=== PATIENT | male | born 1950 | race Caucasian/White ===

== ENCOUNTER 2023-11-21 13:00 | Outpatient (RCR) | payer OTHER, SELFPAY | END 2023-11-21 23:59 | disposition home or self-care (01) | LOC: RPT 13:00 | PROVIDERS: ATTENDING PHYSICIAN Student in an Organized Health Care Education/Training Program | DX: M54.51 Vertebrogenic low back pain (principal); Z73.6 Limitation of activities due to disability | CPT/HCPCS: 97110; 97162 ==

== ENCOUNTER 2023-11-30 13:32 | Outpatient (RCR) | payer OTHER, SELFPAY | END 2023-12-08 13:04 | disposition home or self-care (01) | LOC: RPT 13:32 | PROVIDERS: ATTENDING PHYSICIAN Student in an Organized Health Care Education/Training Program | DX: M54.51 Vertebrogenic low back pain (principal); Z73.6 Limitation of activities due to disability | CPT/HCPCS: 97110 ==

== ENCOUNTER → 2024-02-22 10:04 | Outpatient (REF) | payer OTHER, SELFPAY | LOC: DHCBS MAIN 10:04 | PROVIDERS: ATTENDING PHYSICIAN Internal Medicine Cardiovascular Disease; FAMILY PHYSICIAN Student in an Organized Health Care Education/Training Program | DX: Z98.890 Other specified postprocedural states (principal) | CPT/HCPCS: 93306 ==

== ENCOUNTER → 2024-05-02 09:01 | Outpatient (REF) | payer OTHER, SELFPAY | LOC: RAD 09:01 | PROVIDERS: ATTENDING PHYSICIAN Surgery Vascular Surgery; FAMILY PHYSICIAN Student in an Organized Health Care Education/Training Program | DX: I73.9 Peripheral vascular disease, unspecified (principal); I71.43 Infrarenal abdominal aortic aneurysm, without rupture; I65.29 Occlusion and stenosis of unspecified carotid artery | CPT/HCPCS: 93880; 93922; 93925; 93978 ==

== ENCOUNTER 2024-10-31 10:14 | Day surgery (SDC) | payer OTHER, SELFPAY ==
--- NOTE | 2024-10-31 11:17 | ITS.CL.CARDI ---
Diesel Pile Hammer Operator - Cardioversion
Cardioversion
Procedure Report:
Procedure: Direct current electrical cardioversion
Pre-operative diagnosis: Persistent atrial fibrillation
Post-operative diagnosis: Persistent atrial fibrillation status post DC cardioversion to sinus rhythm
Anesthesia: MAC
Attending Physician: Harvinder Odell MD
Procedure Description: The patient was brought to the electrophysiology laboratory in the fasting state. Adherence to anticoagulation regimen was confirmed. Informed consent was obtained from the patient prior to the start of the procedure.
Electrodes were placed on the patient and connected to an external defibrillator. Monitoring of blood pressure, ECG tracings, and pulse oximetry was initiated. The pads were applied to the patient in the anterior and posterior positions. The patient
was sedated by the anesthesiologist. A 200 joule biphasic synchronized shock was delivered to the patient under MAC anesthesia. Sinus rhythm was successfully restored. The patient recovered uneventfully from MAC anesthesia. There were no immediate
post-procedure complications. The patient left the lab in good condition. The attending physician was present throughout the entire procedure.
Impression: Successful direct current cardioversion with latter day of sinus rhythm after one 200 joule biphasic synchronized shock.
== END 2024-10-31 11:45 | disposition home or self-care (01) ==
LOC: CATH 10:14
PROVIDERS: ATTENDING PHYSICIAN Internal Medicine Cardiovascular Disease; FAMILY PHYSICIAN Student in an Organized Health Care Education/Training Program; OTHER PHYSICIAN Internal Medicine Cardiovascular Disease
DX: I48.19 Other persistent atrial fibrillation (principal); I48.92 Unspecified atrial flutter; I50.9 Heart failure, unspecified; I34.0 Nonrheumatic mitral (valve) insufficiency; I25.10 Atherosclerotic heart disease of native coronary artery without angina pectoris; E78.00 Pure hypercholesterolemia, unspecified; Z87.891 Personal history of nicotine dependence; Z79.01 Long term (current) use of anticoagulants
CPT/HCPCS: 92960; 93005

== ENCOUNTER → 2024-11-18 14:51 | Outpatient (REF) | payer OTHER, SELFPAY | LOC: RCS 14:51 | PROVIDERS: ATTENDING PHYSICIAN Internal Medicine Cardiovascular Disease; FAMILY PHYSICIAN Student in an Organized Health Care Education/Training Program | DX: I42.9 Cardiomyopathy, unspecified (principal) | CPT/HCPCS: 93306 ==

== ENCOUNTER → 2024-12-02 09:00 | Outpatient (REF) | payer OTHER, SELFPAY | LOC: RAD 09:00 | PROVIDERS: ATTENDING PHYSICIAN Surgery Vascular Surgery; FAMILY PHYSICIAN Student in an Organized Health Care Education/Training Program | DX: I73.9 Peripheral vascular disease, unspecified (principal) | CPT/HCPCS: 93922; 93925; 93978 ==

== ENCOUNTER 2024-12-24 08:44 | Day surgery (SDC) | payer OTHER, SELFPAY ==
--- NOTE | 2024-12-18 14:07 | HPS.HSE ---
Family Physician
-
Family Physician: NOT KNOW UNKNOWN - PT DOES
Chief Complaint
-
Paroxysmal atrial fibrillation. Atrial flutter.
History of Present Illness
The patient is a 74-year-old male presenting today for paroxysmal atrial fibrillation and atrial flutter. The patient reports dyspnea, most notably with exertion, and fatigue secondary to these diagnoses. He previously underwent two
cardioversions, with the last occurring in October 2024, for his atrial arrhythmias. He is on current pharmacological therapy with Metoprolol Succinate. He reports he has been compliant with Eliquis for oral anticoagulation. He notes that his
current symptoms greatly interfere with his activities of daily living and overall impact his quality of life. He is interested in pursuing pulmonary vein isolation and atrial flutter ablation for further arrhythmia management. Prior to these
procedures, he will be required to undergo a transesophageal echocardiogram to officially rule out a left atrial appendage thrombus. He denies any current complaints today such as chest pain, shortness of breath at rest, nausea, vomiting, diarrhea,
lightheadedness, dizziness, cough, sore throat, or fever.
Medical History
Past Medical History
Past Medical History: Reports Other
Additional Past Medical History:
1. Paroxysmal atrial fibrillation and atrial flutter, status post IRENA-guided cardioversion x2; pharmacological therapy with Metoprolol Succinate, oral anticoagulation with Eliquis.
2. Hypercholesterolemia.
3. Coronary artery disease/NSTEMI, 2019, status post CABG x3.
4. Severe mitral regurgitation, status post mitral valve ring repair with CABG 2019.
5. Bilateral carotid artery stenosis with chronic right carotid occlusion.
6. Peripheral vascular disease with right common iliac artery aneurysm, status post right femoral endarterectomy and angioplasty, repair of right common iliac artery aneurysm, and left superficial femoral artery angioplasty and stenting x2.
7. 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
8. Congestive heart failure, reduced ejection fraction.
9. Ischemic cardiomyopathy.
10. Obstructive sleep apnea, compliant with BiPAP.
11. Non-insulin dependent diabetes per records.
12. Diverticulosis.
13. Documented TIA.
14. Chronic right-sided lacunar infarct on brain MRI 06/2021.
15. BPH, status post TURP 06/2022.
16. Remote fractured sternum and displaced left clavicle, treated conservatively.
17. Shingles.
18. Hearing impairment bilaterally.
19. Remote tobacco abuse.
Past Surgical History: Reports Other
Additional Past Surgical History:
1. IRENA/cardioversion x2.
2. CABG x3 and mitral valve ring repair.
3. Right femoral endarterectomy and angioplasty, repair of right common iliac artery aneurysm, and left superficial femoral artery angioplasty and stenting x2.
4. TURP.
5. Mohs.
6. Bilateral cataract extraction.
7. Colonoscopy x2.
Social History
Tobacco: Former Smoker (He is a former one pack per day cigarette smoker who quit tobacco products altogether 'awhile back.')
Alcohol: None
Living: Alone (The patient lives in a small [place] in [place].)
Family History
Family History: Not pertinent
Allergies / Home Medications
Allergy/Medication List:
Home medications:
1. Aspirin 81 mg p.o. daily.
2. Atorvastatin 80 mg p.o. every evening.
3. Eliquis 5 mg p.o. twice a day.
4. Zetia 10 mg p.o. daily.
5. Lisinopril 2.5 mg p.o. daily.
6. Metoprolol Succinate 12.5 mg p.o. twice a day.
Allergies: Seasonal. No known drug allergies.
Review of Systems
-
A 12 point ROS was completed and negative except as noted: Yes
Physical Exam
Vital Signs
Blood pressure 113/80, heart rate 69, respirations 18, pulse ox 99%.
Height 5 feet 7 inches, weight 80.8 kg, BMI 27.9.
Physical Exam
General: Well Developed, Well Nourished and No Apparent Distress
HEENT: NormoCephalic, Moist mucous membranes, Atraumatic and PERRLA
Respiratory: Clear
Cardiac: Irregular Rhythm
GI: Soft, Non Tender and Non Distended
Musculoskeletal: No Edema and Normal Gait & Station
Skin: Warm and Dry
Neuro: AO x 3 and Nonfocal/grossly intact
Laboratory Results
-
DIAGNOSTIC STUDIES as of 12/12/2024: White blood cell count 5.4, hemoglobin 15.4, platelet count 204,000, PT 13.4, INR 0.97. Sodium 139, potassium 4.8, BUN 21, creatinine 0.9, glucose 119, calcium 9.4, magnesium 2.1, AST 26, ALT 32, albumin 4.3.
Blood type O positive.
EKG 12/12/2024: Atrial fibrillation. Nonspecific intraventricular conduction delay. Nonspecific T-wave abnormality.
Chest CT 12/12/2024: Normal, conventional pulmonary venous anatomy. Incomplete contrast filling of the left atrial appendage, less likely thrombus.
Echocardiogram 11/18/2024: Left ventricle is mildly dilated. Left ventricular ejection fraction is 40% by volumetric assessment. Basal inferior and inferolateral akinesis. Abnormal (paradoxical) septal motion consistent with postoperative status.
Mild concentric left ventricular hypertrophy. Mildly enlarged right ventricular size. Mild reduced right ventricular systolic function. Index LA volume is severely abnormal. Status post mitral valve ring repair with peak gradient of 6 mmHg/mean
gradient 2 mmHg. No mitral regurgitation is seen. Trace tricuspid regurgitation. Estimated pulmonary artery pressure of 20-25 mmHg, assuming a right atrial pressure of 3 mmHg. Compared to the prior echo of 02/22/2024, there is little change.
Impression/Plan
-
IMPRESSION/PLAN:
1. Paroxysmal atrial fibrillation and atrial flutter: Prior to undergoing pulmonary vein isolation and atrial flutter ablation, the patient will undergo a transesophageal echocardiogram with Dr. Jose Pineda on 12/24/2024 to officially rule out
a left atrial appendage thrombus. The benefits and risks of the procedure have been explained to the patient. The patient understands these risks and wishes to proceed.
[2024-12-24 09:40] LABS: Glucose - Point of Care 105 mg/dl (70-99)
== END 2024-12-24 10:15 | disposition home or self-care (01) ==
LOC: CATH 08:44
PROVIDERS: ATTENDING PHYSICIAN Internal Medicine Cardiovascular Disease; FAMILY PHYSICIAN Student in an Organized Health Care Education/Training Program
DX: I48.0 Paroxysmal atrial fibrillation (principal); I08.3 Combined rheumatic disorders of mitral, aortic and tricuspid valves; I25.10 Atherosclerotic heart disease of native coronary artery without angina pectoris; I48.92 Unspecified atrial flutter; Z79.899 Other long term (current) drug therapy; Z79.01 Long term (current) use of anticoagulants; E78.00 Pure hypercholesterolemia, unspecified; Z95.1 Presence of aortocoronary bypass graft; I25.2 Old myocardial infarction; I65.23 Occlusion and stenosis of bilateral carotid arteries; E11.51 Type 2 diabetes mellitus with diabetic peripheral angiopathy without gangrene; I11.0 Hypertensive heart disease with heart failure; I50.22 Chronic systolic (congestive) heart failure; I25.5 Ischemic cardiomyopathy; G47.33 Obstructive sleep apnea (adult) (pediatric); Z79.84 Long term (current) use of oral hypoglycemic drugs; K57.90 Diverticulosis of intestine, part unspecified, without perforation or abscess without bleeding; Z86.73 Personal history of transient ischemic attack (TIA), and cerebral infarction without residual deficits; Z90.79 Acquired absence of other genital organ(s); N40.0 Benign prostatic hyperplasia without lower urinary tract symptoms; H91.93 Unspecified hearing loss, bilateral; Z87.891 Personal history of nicotine dependence; Z79.82 Long term (current) use of aspirin; I08.8 Other rheumatic multiple valve diseases
CPT/HCPCS: 93312; 93320; 93325; 75625; 82962; Q9967

== ENCOUNTER 2024-12-26 10:25 | Day surgery (SDC) | payer OTHER, SELFPAY ==
[2024-12-12 10:16] VITALS: BMI 27.9
[2024-12-12 10:39] LABS: % Basophils 0.4 % (0-2); % Eosinophils 2.4 % (0-6); % Immature Granulocytes 0.6 % (0-0.5); % Lymphocytes 27.4 % (20.5-51.1); % Monocytes 9.9 % (1.7-9.3); % Neutrophils 59.3 % (42.2-75.2); Absolute Eosinophils 0.1 10^3/uL (0-0.7); Absolute Lymphocytes 1.5 10^3/uL (1.2-3.4); Absolute Monocytes 0.5 10^3/uL (0.1-0.6); Absolute Neutrophils 3.2 10^3/uL (1.4-6.5); Hematocrit 47.7 % (39.0-52.0); Hemoglobin 15.4 g/dL (13.0-18.0); Mean Corp Hgb Conc. 32.3 g/dL (33.0-37.0); Mean Corpuscular Hgb 29.2 pg (27.0-31.0); Mean Corpuscular Volume 90.3 fL (80.0-94.0); Mean Platelet Volume 9.4 fL (7.4-10.4); Nucleated Red Blood Cells % 0 % (-); Platelet Count 204 10^3/uL (130-400); Red Blood Cell Count 5.28 10^6/uL (4.70-6.10); Red Cell Dist. Width 13.7 % (11.5-14.5); White Blood Cell Count 5.4 10^3/uL (4.8-10.8)
[2024-12-12 10:48] LABS: INR 0.97; PT 13.4 Sec (11.4-14.6)
[2024-12-12 10:50] LABS: ALT (SGPT) 32 U/L (0-50); AST (SGOT) 26 U/L (17-59); Albumin 4.3 g/dl (3.5-5.0); Alkaline Phosphatase 93 U/L (38-126); Blood Urea Nitrogen 21 mg/dl (9-20); Calcium 9.4 mg/dl (8.4-10.2); Carbon Dioxide 28 mmol/L (22-30); Chloride 104 mmol/L (98-107); Estimated Creatinine Clearance 68 ml/min; Glucose 119 mg/dl (70-99); Magnesium 2.1 mg/dl (1.6-2.3); Potassium 4.8 mmol/L (3.5-5.1); Sodium 139 mmol/L (135-145); Total Bilirubin 0.8 mg/dl (0.2-1.3); Total Protein 6.7 g/dl (6.3-8.2); eGFR > 60.00
[2024-12-26] VITALS (17 sets, daily range): BP systolic 112–157; BP diastolic 68–131; BMI 27.9
[2024-12-26 11:07] LABS: Glucose - Point of Care 105 mg/dl (70-99)
--- NOTE | 2024-12-26 12:40 | W.PN.UPDATE ---
Update Note
Progress Note Update
Discussed his prior history with patient and . They mentioned that during cardiac surgery he ultimately required a special drug to achieve adequate heparinization. I reviewed Dr. Ballesteros's operative note from 2019 which remarks of a
prolonged period of time to achieve necessary ACT to go on cardiac bypass. The operative note remarks of multiple heparin boluses without achieving successful ACT and ultimately thrombate was given and he was able to achieve an acceptable ACT and
proceeded to coronary artery bypass and mitral valve surgery without incident.
I discussed his case with pharmacy and ordered Thrombate to be infused IV over 15 to 20 minutes then we will proceed with femoral venous access and procedure with adequate heparinization. We will follow ACT's closely.
[2024-12-26 12:58] LABS: ACT-LR - POC 144 Seconds (116-155)
[2024-12-26 13:54] LABS: ACT-LR - POC 369 Seconds (116-155)
[2024-12-26 14:23] LABS: ACT-LR - POC > 397 Seconds (116-155)
[2024-12-26 14:26] LABS: ACT-LR - POC 334 Seconds (116-155)
[2024-12-26 14:39] LABS: ACT-LR - POC 308 Seconds (116-155)
[2024-12-26 14:53] LABS: ACT-LR - POC 361 Seconds (116-155)
[2024-12-26 15:49] LABS: ACT-LR - POC > 397 Seconds (116-155)
--- NOTE | 2024-12-26 15:58 | ITS.CL.ABL ---
Electrical Project Engineer - Ablation
Ablation
Procedure Report:
ELECTROPHYSIOLOGY ABLATION STUDY
DATE:: December 26, 2024 REFERRING: Dr. Lev Pineda
INDICATION: Persistent supraventricular tachycardia in the form of atrial fibrillation. As above
HISTORY: See H and P. Prior mitral valve repair and three-vessel coronary artery bypass. Interestingly the patient's spouse reported that the cardiac surgeon required a 'special medicine 'to perform bypass. Review of Dr. Ballesteros's prior note
from 2019 demonstrated that the patient required thrombate in addition to significant doses of heparin to achieve ACT's required to perform cardiac bypass.
ANTIARRHYTHMIC DRUG: As above
PRE-PROCEDURE IRENA: No atrial thrombus
PRESENTING RHYTHM: Atrial fibrillation
'TIME-OUT': called and confirmed.
SEDATION/ANESTHESIA: provided via the anesthesia department using general anesthesia (LMA).
INTRAVENOUS/ARTERIAL ACCESS:
Right femoral venous - 8Fr
Left femoral venous - 8 Fr, 6 Fr
[id number] stitch bilaterally.
Ultrasound guidance for bilateral femoral vein access was utilized by me to obtain access with demonstration of normal anatomy
CHADS-VASC Score:
HAS-Bled Score
PROCEDURE:
1. Given the patient's history we ordered thrombate prior to initiation of procedure. Our plan to address his ACT's was as follows. We initiated femoral venous access. There was dense biatrial smoke on intracardiac ultrasound after a 15,000 unit
heparin bolus. As such we infused the Antithrombin III and we noted an increase in the ACT to greater than 400 seconds. We then started the heparin drip and monitored every 5 minute ACT's. The ACT stayed between 300-400 seconds for the duration
of the case. The ACT was dropping after initial bolus and repetitive boluses required to achieve continuous therapeutic ACT. Protamine was given after procedure to reverse heparin. After the Antithrombin III injection the dense atrial smoke
abated in both atria and we proceeded with transseptal puncture. A decapolar CS catheter was placed within the CS for mapping and pacing. This was also used as the reference catheter for the 3-D map.
2. The intracardiac ultrasound catheter was positioned in the RA to identify the FO for targeting of transseptal puncture, assist in identification of the pulmonary vein ostia, monitoring pre and post ablation pulmonary vein flow velocities,
monitoring for 'bubble' formation during RF application as a sign of thermal injury, and to monitor for pericardial effusion during mapping and ablation procedure. Left atrial size, LV ejection fraction, and pulmonary vein flows were monitored
pre and post ablation procedure. The other valves were inspected and found to be free of significant regurgitation or stenosis.
3. Half of the calculated heparin bolus was administered prior to the first transeptal puncture. Transseptal puncture was performed to diagnose RA and LA pressure so that safety of LA mapping and ablation could be further assessed, and to access
the left atrium and pulmonary veins for mapping and ablation. This entailed advancing an 8 Fr SL-1 sheath with dilator into the superior vena cava and withdrawing both (monitoring intracardiac ultrasound, fluoroscopy and tip pressure) with the tip
oriented toward the atrial septum. The fossa ovalis was engaged (indicated by sudden displacement of the sheath tip as well as tenting of the fossa seen on intracardiac ultrasound). Left atrial access required a pass with the Brockenbrough needle
extended. Left atrial catheter position was confirmed by pressure monitoring (RA mean pressure 8 mm Hg and LA mean pressure 14 mm Hg), LA saturation ( 99 %), as well as fluoroscopy. The sheath was advanced over the dilator and positioned in the
left atrium. This procedure was repeated for the Agilis sheath. The remainder of the calculated heparin bolus was administered and heparin was
infused to maintain ACT at 300 -350 seconds throughout the case.
4. RA pacing was performed via the proximal decapolar poles and LA pacing was performed via the distal decapolar poles.
5. A quadrapolar catheter was first positioned at the His position for His Bundle recording which was tagged via the 3-D Navex sytem, and then passed to the RVA for RV pacing and recording.
6. The multipolar catheter and the PFA catheter were placed in each of the LIPV, LSPV, RSPV and the RIPV.
7. Next, a 3-D map was created using Navex. A 3-D reconstructed CT image was compared to the 3-D Navex map to assist in anatomic interpretation, mapping and ablation. The CT image and the NavX image were fused.
8. A total of 76 lesions were given to the pulmonary veins and the left atrial posterior wall roof and floor. Acute reconnection was noted at the roof and in the posterior antrum of the left superior pulmonary vein. Additional lesions in the
basket and flower poses in this region lead to reisolation. Interestingly after 5 to 10 minutes the this area did reconnect but in a more narrow band. Additional lesions in the all of pose distally on the miki and in the distal left superior
pulmonary vein rendered this area isolated durably. 6 mg of adenosine was given without reconnection. Entrance next block was confirmed in all 4 pulmonary veins and the left atrial posterior wall. EP study post procedure with burst atrial pacing
and atrial extrastimuli did not induce any other tachyarrhythmia.
9. Normal sinus node and AV node function were noted.
TOTAL FLOURO TIME: 12.8 minutes
TOTAL RF DURATION: 0 minutes
REVERSAL OF HEPARIN: 45 mg of protamine, slow IV administration
COMPLICATIONS:
None
Intracardiac US shows no pericardial effusion post ablation.
SUMMARY:
Complex left atrial mapping and ablation.
Isolation of all 4 pulmonary veins and the left atrial posterior wall from roof to floor. There was acute reconnection noted at the posterior wall roof outside the left superior pulmonary vein which was addressed with distal miki and distal left
superior pulmonary vein lesions in the [place] pose. Adenosine was given without acute reconnection.
RECOMMENDATIONS:
1. Admit to monitored bed.
2. Resume anticoagulation
3. 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 Given his prior venous clot lifelong oral anticoagulation will be likely and I did discuss with his spouse that outpatient testing for this as well as his
brother on the [facility] should be considered. I also mention to patient's spouse to always mention the possibility of Antithrombin III deficiency prior to any cardiac or vascular procedure.
4. Check CBC and creatinine tomorrow and presume discharge tomorrow
Copy to: Dr. Lev Pineda
[2024-12-26] MEDS: ANESTHETIC LOZENGE 1 LOZENGE PO ×2 (17:07→21:32)
[2024-12-26] MEDS: TYLENOL 650 MG PO ×2 (17:08→21:31)
--- NOTE | 2024-12-26 18:27 | PTCARENOTE ---
Pt received from recovery area post ablation. Pt reports tenderness in bilateral femoral groin sites, dressings very tight, dry and intact, no sign of bleeding or hematoma. Doppler pulses present X4. Telemetry shows sinus rhythm. Pt continues on
bedrest as ordered.
[2024-12-26] MEDS: TOPROL XL 12.5 MG PO (19:54)
[2024-12-26] MEDS: LIPITOR 80 MG PO (19:54)
[2024-12-26] MEDS: ELIQUIS 5 MG PO (22:07)
--- NOTE | 2024-12-26 22:51 | PTCARENOTE ---
Received patient at change of shift. SR on the monitor with PVCs. HR in the 80s. L groin CDI. R groin with bleeding, pressure held for ten minutes and new dressing applied. Pt complains of a sore throat and a sore feeling at groin sites. PRN lozenge
and Tylenol administered as per JAN. Call sharma within reach.
[2024-12-27 02:54] VITALS: BP 153/87
[2024-12-27 03:55] LABS: Hemoglobin 13.6 g/dL (13.0-18.0); Mean Corp Hgb Conc. 33.2 g/dL (33.0-37.0); Mean Corpuscular Hgb 29.2 pg (27.0-31.0); Mean Corpuscular Volume 88.2 fL (80.0-94.0); Mean Platelet Volume 9.7 fL (7.4-10.4); Platelet Count 196 10^3/uL (130-400); Red Blood Cell Count 4.65 10^6/uL (4.70-6.10); Red Cell Dist. Width 13.8 % (11.5-14.5); White Blood Cell Count 6.3 10^3/uL (4.8-10.8)
[2024-12-27 04:19] LABS: Blood Urea Nitrogen 25 mg/dl (9-20); Calcium 9.2 mg/dl (8.4-10.2); Carbon Dioxide 21 mmol/L (22-30); Chloride 105 mmol/L (98-107); Estimated Creatinine Clearance 88 ml/min; Glucose 129 mg/dl (70-99); Magnesium 2.1 mg/dl (1.6-2.3); Potassium 4.6 mmol/L (3.5-5.1); Sodium 132 mmol/L (135-145); eGFR > 60.00
[2024-12-27 07:37] VITALS: BP 135/77
--- NOTE | 2024-12-27 08:03 | W.PN.CARDCBS ---
Addendum entered and electronically signed by Grady Green MD 12/27/24 09:46:
Patient seen and examined
Agree with SHRIMP CLEANER note and assessment
Agree with SHRIMP CLEANER note and plan
Please note the patient was given Thrombate during procedure to allow appropriate ACT's yesterday and I spoke with patient and about pursuing a workup for Antithrombin III deficiency.
Bilateral groins clean dry and intact
Cor regular
Telemetry sinus rhythm
Remainder of exam per SHRIMP CLEANER note
IMPRESSION:
AFib/Flutter
s/p PFA, 12/26/24
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
CAD, prior NSTEMI 2018
CABG x3 (2018)
Severe MR, s/p MV ring repair (2018)
ICM
Chronic systolic HFrEF, 40%
Bilat JANIS w/chronic Right Carotid occlusion
PVD, R CASSIE aneurysm, w/p R Fem endarterectomy/angioplasty w/aneurysm repair, L SFA scow captain/stent x2
DEEPIKA/BiPAP
DM
HLD
HTN
Prior TIA/CVA (2020)
BPH, s/p TURP (06/2022)
PLAN:
bilat groin sites stable
resumed eliquis last evening
followup with Dr. Green as scheduled
recommended to follow with Hematology for consult/eval re: suspected antithrombin III deficiency
home today
Original Note:
Today's Communication / Plan
-
Outpt hematology followup
home today
Impression / Plan
-
PCP:Rachel Alejandro MD
CDY: Lev Pineda MD
74 y/o,PMH sig for recurrent symptomatic AFib/Flutter, failed cardioversion and medical therapy. [id number], maintained on eliquis.
Presented to EP lab, s/p PFA. Pt has suspected antithrombin III deficiency and was given thrombate as well as heparin to achieve necessary ACT during procedure.
IMPRESSION:
AFib/Flutter
s/p PFA, 12/26/24
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
CAD, prior NSTEMI 2018
CABG x3 (2018)
Severe MR, s/p MV ring repair (2018)
ICM
Chronic systolic HFrEF, 40%
Bilat JANIS w/chronic Right Carotid occlusion
PVD, R CASSIE aneurysm, w/p R Fem endarterectomy/angioplasty w/aneurysm repair, L SFA scow captain/stent x2
DEEPIKA/BiPAP
DM
HLD
HTN
Prior TIA/CVA (2020)
BPH, s/p TURP (06/2022)
PLAN:
Tele- NSR w/ deg AVB, occas PVC, blocked PAC
bilat groin sites stable
resume eliquis last evening
followup with Dr. Green as scheduled
recommended to follow with Hematology for consult/eval re: suspected antithrombin III deficiency
home today
Progress Note - Reel Tender
Subjective
Date of Service: December 27, 2024
Denies cp/palps/dyspnea
groin sites without pain
oob ambulating
Objective
Labs:
12/27/24 02:59
12/27/24 02:58
Labs
Hgb 13.6 g/dL (13.0-18.0) 12/27/24 02:59
Hct 41.0 % (39.0-52.0) 12/27/24 02:59
Plt Count 196 10^3/uL (130-400) 12/27/24 02:59
PT 13.4 Sec (11.4-14.6) 12/12/24 10:23
INR 0.97 12/12/24 10:23
Sodium 132 mmol/L (135-145) L 12/27/24 02:58
Potassium 4.6 mmol/L (3.5-5.1) 12/27/24 02:58
BUN 25 mg/dl (9-20) H 12/27/24 02:58
Creatinine 0.7 mg/dL (0.7-1.3) 12/27/24 02:58
Glucose 129 mg/dl (70-99) H 12/27/24 02:58
Vital Signs and I&O:
Vital Signs
Temp Pulse Resp BP Pulse Ox
98.2 F 81 20 135/77 98
12/27/24 07:35 12/27/24 07:37 12/27/24 07:35 12/27/24 07:37 12/27/24 07:37
Vital Signs
Temp Pulse Resp BP Pulse Ox
98.2 F 81 20 135/77 98
12/27/24 07:35 12/27/24 07:37 12/27/24 07:35 12/27/24 07:37 12/27/24 07:37
Intake & Output
12/25/24 12/26/24 12/27/24 12/28/24
06:59 06:59 06:59 06:59
Intake Total 1600 / 1600
Balance 1600 / 1600
Physical Exam
Physical Exam
AAOx3, MAEE 5/5
RRR S1 S2 no murmurs
CTA bilat, non labored
soft abd, + bs
bilat groin sites without ht/bleeding, non tender
bilat extremities w/palpable distal pulses, no edema
[2024-12-27] MEDS: ASPIR LOW (ENTERIC COATED) 81 MG PO (08:42)
[2024-12-27] MEDS: ZETIA 10 MG PO (08:42)
[2024-12-27] MEDS: TOPROL XL 12.5 MG PO (08:43)
[2024-12-27] MEDS: ZESTRIL 2.5 MG PO (08:43)
[2024-12-27] MEDS: ELIQUIS 5 MG PO (08:43)
[2024-12-27] MEDS: TYLENOL 650 MG PO (08:44)
[2024-12-27] MEDS: ANESTHETIC LOZENGE 1 LOZENGE PO (08:45)
--- NOTE | 2024-12-27 08:47 | W.DS.TRANS ---
DC Summary - Affirmative Action Officer
-
Discharge Instructions:
Discharge Diagnosis/Procedures Atrial fibrillation, s/p ablation
Diet Low Cholesterol
Driving Restrictions No driving for 24 hours
Instructions:
Stand-Alone Forms: DC Instructions- Cath/EP Lab
Changes to Home Medications: No
Discharge Medications:
DC Medications w/original date entered in [email or web address]
atorvastatin 80 mg tablet 80 mg PO QPM ##30 04/23/19
lisinopril 5 mg tablet 2.5 mg PO DAILY Blood pressure 07/21/22
metoprolol succinate 25 mg tablet,extended release 24 hr 12.5 mg PO BID Blood pressure 07/21/22
apixaban 5 mg tablet (Eliquis) 5 mg PO BID Blood clot prevention/tx 03/09/23
ezetimibe 10 mg tablet 10 mg PO DAILY High cholesterol 03/09/23
aspirin 81 mg tablet,delayed release 81 mg PO DAILY 12/10/24
Home Medication Changes
Pending Results: No
--- NOTE | 2024-12-27 11:15 | PTCARENOTE ---
Pt seen by and Shannon Varghese, OSBALDO. Pt walking in halls without problem, bilateral groin wounds with no bleeding or hematoma. Telemetry and IV device removed. Discharge instructions reviewed with pt regarding activity and driving
restrictions, wound care, medications and their possible side effects, reporting cares and concerns and follow up appt's. Very good understanding verbalized. Pt escorted out via wheelchair and pt discharged to home.
--- NOTE | 2024-12-27 11:25 | CM ---
CM following for DC planning needs.
Met w/ patient at bedside. Pt. was prepared for DC and awaiting ride home.
Pt. had no concerns at this time. Pt. is functionally indep. w/ ADLs, mobility without the use of any assisted device.
Plan is for home without needs.
== END 2024-12-27 11:10 | disposition home or self-care (01) ==
LOC: CATH 10:25
PROVIDERS: Nurse Practitioner Adult Health; ATTENDING PHYSICIAN Internal Medicine Cardiovascular Disease; FAMILY PHYSICIAN Student in an Organized Health Care Education/Training Program; OTHER PHYSICIAN Internal Medicine Cardiovascular Disease
DX: I48.0 Paroxysmal atrial fibrillation (principal); I47.10 Supraventricular tachycardia, unspecified; I48.92 Unspecified atrial flutter; Z87.891 Personal history of nicotine dependence; Z79.82 Long term (current) use of aspirin; Z79.01 Long term (current) use of anticoagulants; Z79.899 Other long term (current) drug therapy; Z95.1 Presence of aortocoronary bypass graft; E11.51 Type 2 diabetes mellitus with diabetic peripheral angiopathy without gangrene; E78.00 Pure hypercholesterolemia, unspecified; I25.10 Atherosclerotic heart disease of native coronary artery without angina pectoris; I25.2 Old myocardial infarction; I25.5 Ischemic cardiomyopathy; G47.33 Obstructive sleep apnea (adult) (pediatric); Z79.84 Long term (current) use of oral hypoglycemic drugs; Z86.73 Personal history of transient ischemic attack (TIA), and cerebral infarction without residual deficits; Z90.79 Acquired absence of other genital organ(s); N40.0 Benign prostatic hyperplasia without lower urinary tract symptoms; H91.93 Unspecified hearing loss, bilateral; I50.20 Unspecified systolic (congestive) heart failure; I11.0 Hypertensive heart disease with heart failure; Z95.820 Peripheral vascular angioplasty status with implants and grafts
CPT/HCPCS: C1732; C1894; C1730; C1892; C1759; 36415; 75572; 80048; 80053; 82962; 83735; 85025; 85027; 85347; 85610; 86850; 86900; 86901; 93005; 93656; 93657; C1733; C1766; J0153; J7197; Q9967

== ENCOUNTER 2025-04-08 23:25 | Inpatient (IN) | payer OTHER, SELFPAY ==
[2025-04-08 22:06] VITALS: BP 119/86
--- NOTE | 2025-04-08 22:26 | ED.GENMED ---
History of Present Illness
General
Chief Complaint: Chest Pain
Source: patient
Exam Limitations: none
Time Seen by Provider: 04/08/25 22:25
Nursing documentation reviewed up to this point in time: agreed with
History of Present Illness
History of Present Illness:
74-year-old male presents to the emergency department with chest pain and shortness of breath for the last 15 minutes prior to arrival. EKG in triage showed V. tach. Vital signs stable. Patient rushed back to her room and received amiodarone. 2
doses of 150 mg. Second dose broke his V. tach and brought him down to sinus rhythm second-degree AV block. Patient is typically on Eliquis but has not taken it in 2 days for other
Vital signs are stable. Patient not hypoxic
Nursing note reviewed. I agree with nursing documentation up to this point in time.
Home Meds and allergies reviewed.
NUMBER AND COMPLEXITY OF PROBLEMS ADDRESSED AT THE ENCOUNTER
� Chronic conditions affecting care: A-fib, a flutter, chest pain, CHF, CAD, hypertension, hyperlipidemia, mitral regurg, myocardial infarction, CABG, peripheral vascular disease, carotid occlusion on the right
� Acute Exacerbation and/or Progression of Chronic Illness:
� Differential Diagnosis includes:
AMOUNT AND/OR COMPLEXITY OF DATA TO BE REVIEWED AND ANALYZED
I performed an independent evaluation of the following and my interpretation is:
EKG: Initial EKG in triage shows wide-complex tachycardia rate of 216 consistent with ventricular tach
Pulse Ox: Not Hypoxic
Pot Fluxer: Initial V. tach, after amiodarone, sinus bradycardia.
CT:
X-rays:
Ultrasound:
Laboratory Studies: Troponin 0.022, proBNP is 156, magnesium is 2.3
Other:
Review of other/old records:
Clinical information was obtained by an independent historian:
Prescriptions/Medications Considered but not given:
Further testing considered but not performed:
RISK OF COMPLICATIONS AND/OR MORBIDITY OR MORTALITY OF PATIENT MANAGEMENT
Social determinants of health affecting care: Good Social Support
Discussion with other providers: Spoke with Dr. Knapp, cardiology who agrees with the plan
Escalation of care including admission/observation vs risk of discharge considered: After being observed in the emergency department, patient is to be admitted for further observation and testing
CRITICAL CARE NOTE:
Critical care statement: A total of 35 minutes of critical care time was provided for this patient. This time is separate from time utilized to perform the aforementioned documented procedures. Aggregate critical care time includes only time
during which I was engaged in work directly related to the patient's care, as described above, whether at the bedside or elsewhere in the Emergency Department.
Total Time (exclusive of procedures):35
Update:
Past History
Social History
Personal: Partner
Living: with roommate
Employment: Employed
Family History
Family History: Early CAD (Dad age 57 [place] Youger brother recently had cardiac stents)
Review of Systems
Review of Systems
Allergies reviewed?: Yes
All Other Systems: ROS reviewed and negative except as documented in HPI and ROS
Constitutional: Reports no symptoms
EENT: Reports no symptoms
Respiratory: Reports no symptoms
Cardiac: Reports chest pain, diaphoresis and palpitations
ABD/GI: Reports no symptoms
: Reports no symptoms
Musculoskeletal: Reports no symptoms
Skin: Reports no symptoms
Neurological: Reports no symptoms
Endocrine: Reports no symptoms
Hematologic/Lymphatic: Reports no symptoms
Psychiatric: Reports anxiety
Phy Exam
General Physical Exam
General Presentation: severe distress
General age: appears older than age
General Skin: ashen and diaphoretic
General Habitus: normal
General Mental: alert
General Hydration: appears well hydrated
ENT Exam
ENT Exam: EOMI, pharynx normal, neck supple and normocephalic
Eye Exam
Eye Exam: PERRL, cornea clear and conjunctiva normal
Cardiovascular Exam
Cardiovascular Exam: tachycardia
Pulmonary Exam
Pulmonary Exam: lungs clear, no respiratory distress, no rales, no crackles, no rhonchi, no stridor, no wheezing and no cough
Gastrointestinal Exam
Gastrointestinal Exam: normal bowel sounds, non tender, soft, no organomegaly, no pulsatile mass and non distended
Neurological Exam
Neurological Exam: alert, oriented x3, no motor deficits and speech normal
Musculoskeletal Exam
Musculoskeletal Exam: full ROM and no edema
Skin Exam
Skin Exam: normal color, no rash, no petechia and diaphoresis
Psychiatric Exam
Psychiatric Exam: normal mood/affect and anxious
Scores
Heart Score for Chest Pain Patients
STEMI patient?: No
History: Moderately Suspicious
ECG: Normal
Age: >/= 65 years
Risk Factors: >/= 3 Risk Factors or History of CAD
Troponin: >1 - <3 x Normal Limit
Heart Score for Chest Pain Patients: 6
Heart Score Risk: 20.3% MACE over next 6 weeks
Course
Orders/Labs/Results
Orders:
Orders
04/08/25 Dinner
NPO
Allow oral meds: Yes
Allow clear liquids: No
NPO with Ice Chips: No
04/08/25 22:04
EKG [Electrocardiogram (*1)] Urgent
Reason for Study: Chest Pain
04/08/25 22:15
Amiodarone [Cordarone] 300 mg .ROUTE .STK-MED ONE
04/08/25 22:30
Amiodarone [Cordarone] 900 mg DEXTROSE 5% PVC-free BAG [D5W PVC-free BAG] 500 ml IV PER PROTOCOL
04/08/25 22:35
CR Chest Portable - 1 View Urgent
Reason For Exam: cp
04/08/25 22:38
Complete Blood Count/With Diff Urgent
Comprehensive Metabolic Panel Urgent
Magnesium Urgent
NT-proBNP Urgent
PTT Urgent
Prothrombin Time Urgent
TSH Urgent
Troponin I Urgent
04/08/25 22:45
Amiodarone [Cordarone] 900 mg DEXTROSE 5% PVC-free BAG [D5W PVC-free BAG] 500 ml IV PER PROTOCOL
Initial Dose in mg/min:: 1
Duration of initial dose (hours):: 6
Subsequent dose in mg/min:: 0.5
Duration of subsequent dose (hours):: 18
Maximum dose in mg/min:: 1
Hold and notify provider if:: Heart rate < 60 BPM or SBP < 90 mmHg or MAP < 60 mmHg
04/08/25 22:53
Admit/Transfer Patient As Directed
Co-Sign Provider:
Level of Care: Inpatient admission
Assign to:: IVU
Physician / Group: saqib kaiser
Diagnosis: v tach conversion bradycardia post amiodarone
Reason for Hospitalization: v tach conversion bradycardia post amiodarone
Expected length of stay greater than two midnights?: Yes
ELOS- Estimated Length of Stay in days: 5
I certify the patient meets the requirements for IP care: Yes
04/08/25 22:54
Code Status As Directed
Resuscitation Status: Full Code
04/08/25 23:00
Flush (0.9% Sodium Chloride) [Flush (Nss)] See Dose Instructions IV PER PROTOCOL
PRN Pain Medication Management As Directed
May give lesser potent ordered pain med per pt: Yes
preference::
Protocol:: Medication orders for pain may be administered in a
manner that supports deferring to patient preference
when the pt is:
- Requesting an ordered lesser potent pain medication.
Least to most potent pain medications are defined
as: acetaminophen < NSAID < tramadol < opioids
(morphine, oxycodone, hydromorphone).
- Requesting a lesser dose of the same medication IF
ORDERED.
- Requesting a less intrusive route of administration
if both routes are prescribed by the provider (PO <
IV).
04/08/25 23:40
Acetaminophen [Tylenol] 650 mg PO Q4HPRN PRN
04/08/25 23:40
VTE Contraindication Routine
VTE Mechanical Device Contraindication: Medical Contraindication
Pharmocologic Contraindication: Medical Contraindication
Comment: pt on eliquis
Activity As Directed
Activity Level: With Assistance
Intake/ Output As Directed
Frequency: Per unit guidelines
Vital Signs As Directed
Frequency: Per unit guidelines
Weight As Directed
Frequency: Daily
Pulse Ox/spot Check [RESP] Routine
Quantity: 1
04/09/25 06:00
Cardiovascular Evaluation IN AM
Complete Blood Count/With Diff IN AM
Comprehensive Metabolic Panel IN AM
04/09/25 08:00
Apixaban [Eliquis] 5 mg PO BID
Ezetimibe [Zetia] 10 mg PO DAILY
04/09/25 18:00
Atorvastatin [Lipitor] 80 mg PO QPM
04/10/25 06:00
Complete Blood Count/With Diff IN AM
Comprehensive Metabolic Panel IN AM
04/11/25 06:00
Complete Blood Count/With Diff IN AM
Comprehensive Metabolic Panel IN AM
Abnormal Lab Results
04/08/25
22:38
RBC 4.65 L 10^6/uL
(4.70-6.10)
MCHC 32.5 L g/dL
(33.0-37.0)
Abs Immat Gran (auto) 0.1 H 10^3/uL
(0-0.05)
Absolute Monos (auto) 1.1 H 10^3/uL
(0.1-0.6)
Immature Gran % 0.7 H %
(0-0.5)
Neutrophils % 38.2 L %
(42.2-75.2)
Monocytes % 15.6 H %
(1.7-9.3)
Chloride 111 H mmol/L
(98-107)
BUN 24 H mg/dl
(9-20)
Glucose 127 H mg/dl
(70-99)
ALT 52 H U/L
(0-50)
Alkaline Phosphatase 146 H U/L
(38-126)
04/08/25 22:38
04/08/25 22:38
Vital Signs
Initial and Last Documented VS:
Initial Vital Signs
Pulse Resp BP
202 16 119/86
04/08/25 22:06 04/08/25 22:06 04/08/25 22:06
Last Documented Vital Signs
Temp Pulse Resp BP Pulse Ox
97.4 F 74 16 132/80 97
04/09/25 00:37 04/09/25 00:37 04/09/25 00:37 04/09/25 00:37 04/09/25 00:37
*Critical Care Note
Total Time (30-74mins, 75-104mins- exclusive of procedures): 35
ED Attending Note
-
Portions of this chart may have been created with voice recognition software.� Occasional wrong word or��sound alike� substitutions may have occurred due to the inherent limitations of voice recognition software.
Discharge Plan
Departure
Patient Disposition: Admit
Date of Disposition: 04/08/25
Time of Disposition: 22:52
Admit to: IVU
Presentation/result/management discussed w/ accepting MD/DO: Hospitalist
Condition: Serious
Discharge Problem:
V-tach, Heart palpitations
Interventions
Interventions:
*Risk Screen - Suicide Last Done: 04/09/25 00:21
*General Assessment Last Done: 04/09/25 00:30
*Neglect/Abuse Screening Last Done: 04/09/25 00:30
*ED- Fall Risk Assessment Last Done: 04/09/25 00:30
*Nursing Disposition Last Done: 04/09/25 00:30
ED- Cardiac Assessment Last Done: 04/08/25 22:29
Discharge Date and Time
Discharge Date/Time: 04/09/25 00:32
[2025-04-08 22:30] VITALS: BP 132/83
[2025-04-08] MEDS: CORDARONE 518 MG IV (22:33)
--- NOTE | 2025-04-08 22:37 | W.PN.UPDATE ---
Update Note
Progress Note Update
This note serves as an addendum to the H&P by senior javascript developer SIMONA Monica BENDER
HPI
74M Vasculopathy with significant cardiac HX Chr HFrEF, ICM, CAD, CABG , recent admission to Card service with recurrent symptomatic A Fib/
atrial flutter had failed cardioversion and medical therapy ( [id number] score of 7 and has been maintained
on Eliquis ) underwent pulsed field ablation seen at ER:
- Chest pain and shortness of breath for the last 15 minutes prior to arrival.
- EKG in triage showed V. tach.
- Vital signs stable.
- Patient rushed back to her room and received amiodarone. 2 doses of 150 mg. Second dose broke his V. tach and brought him down to sinus rhythm second-degree AV block.
OP Meds
1. Atorvastatin 80 mg tablet 80 mg PO QPM
2. Lisinopril 5 mg tablet 2.5 mg PO DAILY
3. Metoprolol succinate 25 mg tablet,extended release 24 hr 12.5 mgPO BID Blood pressure 07/21/22.
4. Apixaban 5 mg tablet (Eliquis) 5 mg PO BID
5. Ezetimibe 10 mg tablet 10 mg PO DAILY
6. Aspirin 81 mg tablet,delayed release 81 mg PO DAILY .
Vital Signs
Pulse Resp BP Pulse Ox
78 19 132/83 100
04/08/25 22:30 04/08/25 22:30 04/08/25 22:30 04/08/25 22:22
PE
Gen: NAD
HEENT: anicteric
Neck: supple
Lungs: CTA
Cor: RRR S1 s2
Abdomen: soft benign
PURCHASING INTERN: AAO3 NFND
MS: no edema
Psych: normal mood and affect
Data
Pending labs : CBC, CMP, Mg, TPN, TSH
EKG
04/08/25 & 2204
WIDE QRS TACHYCARDIA
RIGHT BUNDLE BRANCH BLOCK , PLUS RIGHT VENTRICULAR HYPERTROPHY
INFERIOR INFARCT , AGE UNDETERMINED
ANTEROLATERAL INFARCT , AGE UNDETERMINED
ABNORMAL ECG
WHEN COMPARED WITH ECG OF 27-DEC-2024 02:50, WIDE QRS TACHYCARDIA HAS REPLACED SINUS RHYTHM VENT. RATE HAS INCREASED BY 136 BPM
12/24/24 IRENA
Mildly reduced left ventricular systolic function.
Severe hypokinesis of the basal to mid inferior and inferolateral wall.
Left ventricular ejection fraction is 40%.
Normal right ventricular size and function.
Moderately dilated left atrium.
Mildly dilated right atrium.
No thrombus detected in the left atrial appendage.
A mitral valve ring/repair is in place and functioning well.. There is trace
mitral regurgitation.
Mild aortic stenosis.
[facility] admission: 12/26/2024 - 12/27/2024
DISCHARGE DIAGNOSES:
1. Atrial fibrillation, atrial flutter.
2. Status post pulsed field ablation, 12/26/2024.
ASSESSMENT & PLAN
S/P stable VT converted to NSR s/p 2 doses of Amiodarone
Sinus Thor ? second degree AVB ?
Underlying ICM , Chr HFrEF
Underlying severe mitral regurgitation with moderately dilated left atrium.
S/P MVR repair and CABG
- c/w Amiodarone gtt
- Hold Metoprolol due to thor cardia
- c/w IT NETWORK ARCHITECT Eliquis
- [facility] card consulted
HX Atrial fibrillation, atrial flutter - failed medical Tx and CV
- Status post pulsed field ablation, 12/26/2024
- [id number] score of 7
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
Known HX
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
CAD with previous NSTEMI in 2019: on ASA and Stain plus Ezetimibe
CABG x 3 with MVR in 2019.
ICM with LVEF 40%
Chr HFrEF: on Lisinopril, holdimg Metoprolol due to thor cardia
B/L JANIS with chronic right carotid artery occlusion.
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
DEEPIKA apnea on BiPAP.
Diet contro DM
Hyperlipidemia: Hi intensity atorvastatin
Benign Hypertension: on Lisinopril, holding Mewtoprolol due to thor cardia
Previous TIA and CVA in 2020: on ASA, Eliquis , Hi intensity Statin and Ezetimibe
DVT Px: IT NETWORK ARCHITECT Eliquis
Full code
IVU
--- NOTE | 2025-04-08 22:48 | HPS.HSE ---
Family Physician
-
Family Physician: Rachel Alejandro MD
Chief Complaint
-
Chest pain, V. tach
History of Present Illness
74-year-old male states he went to sleep at 915 with his BiPAP full mask on he woke up at 1030 with a tightness in his chest feeling short of breath he removed the BiPAP and still was complaining of shortness of breath with chest tightness his
states it takes the ambulance too long to come to the house so she got him in the car and drove him to the hospital he came to the ER complaining of chest pain with shortness of breath for the last 15 minutes prior to arrival EKG in triage showed V.
tach he was rushed back to the room and received amiodarone 2 doses of 150 mg second dose broke his V. tach converted to sinus rhythm second-degree AV block. He reports he held his Eliquis for 2 nights to have Antithrombin III deficiency test.
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
ischemic cardiomyopathy, chronic systolic heart failure with reduced EF 40%, PVD with common right iliac artery aneurysm repair, right femoral endarterectomy and angioplasty, left superficial femoral artery percutaneous angioplasty stenting, DEEPIKA on
BiPAP, DM 2, HLD, HTN, bilateral carotid artery stenosis with chronic right carotid artery occlusion, TIA/CVA 2020,Chronic right sided lacunar infarct on brain MRI 07/16/2021
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
Medical History
Past Medical History
Past Medical History: Reports Other
Additional Past Medical History:
A-fib, a flutter status post ablation 12/26/2024
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
CAD/NSTEMI 2019
CABG x 3 grafts 2018
severe mitral regurg with mitral valve ring repair 2019
ischemic cardiomyopathy
chronic systolic heart failure with reduced EF 40%
PVD with common right iliac artery aneurysm repair
right femoral endarterectomy and angioplasty
left superficial femoral artery percutaneous angioplasty stenting
DEEPIKA on BiPAP
DM 2 diet controlled
HLD
HT
bilateral carotid artery stenosis with chronic right carotid artery occlusion
TIA/CVA 2020,Chronic right sided lacunar infarct on brain MRI 07/16/2021
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
BPH status post TURP 07/16/2022
History of fractured sternum
displaced left clavicle
History of shingles
[place]
Former smoker
Past Surgical History: Reports Other
Additional Past Surgical History:
CAD/NSTEMI 2019, CABG x 3 grafts 2019, severe mitral regurg with mitral valve ring repair
IRENA cardioversion x 2
TURP
Mohs
Bilateral cataract extraction
Colonoscopy x 2
Social History
Tobacco: Non-smoker
Alcohol: None
Drug: None
Personal:
Living: With Family ()
Employment: Retired
Family History
Family History: Early CAD (Father [place] age 52 , mother unknown type of cancer age 50)
Allergies / Home Medications
Allergies reflects when Allergies were last updated in [employer].
Home Medications with original date entered in [employer]
Allergy/Medication List:
Allergies
Allergy/AdvReac Type Severity Reaction Status Date / Time
No Known Allergies Allergy Verified 12/26/24 10:43
Home Medications
atorvastatin 80 mg tablet 80 mg PO QPM ##30 04/23/19
lisinopril 5 mg tablet 2.5 mg PO DAILY Blood pressure 07/21/22
metoprolol succinate 25 mg tablet,extended release 24 hr 12.5 mg PO BID Blood pressure 07/21/22
apixaban 5 mg tablet (Eliquis) 5 mg PO BID Blood clot prevention/tx 03/09/23
ezetimibe 10 mg tablet 10 mg PO DAILY High cholesterol 03/09/23
aspirin 81 mg tablet,delayed release 81 mg PO DAILY 12/10/24
Review of Systems
-
History Source: Patient and Family ( at bedside)
A 12 point ROS was completed and negative except as noted: Yes
Constitutional: Denies Fever or Chills
EENT: Denies Sore Throat or Runny Nose
Respiratory: Reports Trouble Breathing; Denies Cough
Cardiac: Reports Chest Pain; Denies Diaphoresis, Palpitations or Syncope
Abdomen/GI: Denies Abdominal Pain, Nausea, Vomiting, Diarrhea, Constipated, Bloody Stools or Black Stools
: Denies Dysuria, Frequency, Flank Pain, Incontinence, Difficulty Voiding or Urgency
Musculoskeletal: Denies Joint Pain or Edema
Skin: Denies Itching or Rash
Neurological: Denies Dizzy or Headache
Endocrine: Reports No Symptoms
Hematologic/Lymphatic: Reports No Symptoms
Psych: Reports Calm
Physical Exam
Vital Signs
Vital Signs
Pulse Resp BP Pulse Ox
78 19 132/83 100
04/08/25 22:30 04/08/25 22:30 04/08/25 22:30 04/08/25 22:22
Physical Exam
General: Conversant; No Pain, Fever or Chills
HEENT: NormoCephalic, Anicteric, Moist mucous membranes, PERRLA, [place] Conjunctivae and No Ptosis
Respiratory: Clear; No Wheezes, Rales or Rhonchi
Cardiac: S1/S2 and Regular Rhythm; No Murmur, Rub, Gallop or Peripheral Edema
Breast: Deferred by me
GI: Soft, Normal Bowel Sounds and No Hepatosplenomegaly
Rectal: Deferred by Provider
Genito-urinary: Deferred by me
Musculoskeletal: No Clubbing, No Cyanosis and No Edema
Skin: Warm and Dry; No Rash or Jaundice
Neuro: AO x 3, No Motor Deficits, Nonfocal/grossly intact, Cranial Nerves Intact and No Sensory Deficits; No Slurred Speech, Facial Droop, Tremors or Sedated
Psych: Calm
Impression/Plan
-
Impression/plan:
Admit to IVU
#V. tach
-IV amiodarone drip
- Consult Dr. Helton -made aware
- LAbs pending including mag, TSH
- Monitor on telemetry
#Atrial fibrillation, atrial flutter.
#Status post pulsed field ablation, 12/26/2024
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
- Patient held Eliquis for 2 days had testing done on 04/06/2025
#CAD/NSTEMI 2019
#CABG x 3 grafts with mitral valve ring repair 2019
#Severe mitral regurgitation.
#Ischemic cardiomyopathy
.#Chronic systolic heart failure with reduced ejection fraction,
40%
I/O, daily weights
#PVD with RIGHT common iliac artery aneurysm with repair.
#Right femoral endarterectomy and angioplasty
#Left superficial femoral artery percutaneous/angioplasty/stenting
#Obstructive sleep apnea on BiPAP
#Diabetes diet controlled
Check HgbA1c
#Hyperlipidemia
- Check lipid profile
- Continue atorvastatin 80 mg every afternoon, Zetia 10 mg daily
#Hypertension
BP 132/83
Hold lisinopril 2.5 daily, hold metoprolol succinate 12.5 mg twice daily
#Bilateral carotid artery stenosis with chronic right carotid artery occlusion
- Continue atorvastatin 80 mg every afternoon
#TIA/CVA 2020(Chronic right sided lacunar infarct on brain MRI 07/16/2021)
-Continue atorvastatin 80 mg every afternoon, aspirin 81 mg daily
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
#BPH status post TURP 07/16/2022
Other PMH:
History of fractured sternum displaced left clavicle
History of shingles
[place]
Former smoker
DVT prophylaxis
Continue PALLIATIVE MEDICINE PHYSICIAN Eliquis
Full code
[2025-04-08 22:56] LABS: % Basophils 0.6 % (0-2); % Eosinophils 2.4 % (0-6); % Immature Granulocytes 0.7 % (0-0.5); % Lymphocytes 42.5 % (20.5-51.1); % Monocytes 15.6 % (1.7-9.3); % Neutrophils 38.2 % (42.2-75.2); Absolute Eosinophils 0.2 10^3/uL (0-0.7); Absolute Immature Granulocytes 0.1 10^3/uL (0-0.05); Absolute Monocytes 1.1 10^3/uL (0.1-0.6); Absolute Neutrophils 2.7 10^3/uL (1.4-6.5); Hematocrit 42.1 % (39.0-52.0); Hemoglobin 13.7 g/dL (13.0-18.0); Mean Corp Hgb Conc. 32.5 g/dL (33.0-37.0); Mean Corpuscular Hgb 29.5 pg (27.0-31.0); Mean Corpuscular Volume 90.5 fL (80.0-94.0); Mean Platelet Volume 10.3 fL (7.4-10.4); Nucleated Red Blood Cells % 0 % (-); Platelet Count 217 10^3/uL (130-400); Red Blood Cell Count 4.65 10^6/uL (4.70-6.10); Red Cell Dist. Width 13.5 % (11.5-14.5); White Blood Cell Count 7.1 10^3/uL (4.8-10.8)
[2025-04-08 23:00] VITALS: BP 109/92
[2025-04-08 23:07] LABS: INR 0.83; PT 11.7 Sec (11.4-14.6)
[2025-04-08 23:08] LABS: APTT 26.2 Sec (23.4-35.0)
[2025-04-08 23:23] LABS: ALT (SGPT) 52 U/L (0-50); AST (SGOT) 52 U/L (17-59); Albumin 3.9 g/dl (3.5-5.0); Alkaline Phosphatase 146 U/L (38-126); Blood Urea Nitrogen 24 mg/dl (9-20); Calcium 9.4 mg/dl (8.4-10.2); Carbon Dioxide 25 mmol/L (22-30); Chloride 111 mmol/L (98-107); Estimated Creatinine Clearance 86 ml/min; Glucose 127 mg/dl (70-99); Magnesium 2.3 mg/dl (1.6-2.3); Potassium 4.1 mmol/L (3.5-5.1); Sodium 140 mmol/L (135-145); Total Bilirubin 0.6 mg/dl (0.2-1.3); Total Protein 6.3 g/dl (6.3-8.2); eGFR > 60.00
[2025-04-08 23:27] LABS: NT-proBNP 156 pg/ml; Troponin I 0.022 ng/ml
[2025-04-08 23:30] VITALS: BP 109/68
[2025-04-09] VITALS (13 sets, daily range): BP systolic 95–132; BP diastolic 50–84; BMI 29.2
[2025-04-09 05:25] LABS: % Basophils 0.5 % (0-2); % Immature Granulocytes 0.9 % (0-0.5); % Lymphocytes 29.7 % (20.5-51.1); % Monocytes 11.9 % (1.7-9.3); Absolute Eosinophils 0.1 10^3/uL (0-0.7); Absolute Immature Granulocytes 0.1 10^3/uL (0-0.05); Absolute Lymphocytes 1.7 10^3/uL (1.2-3.4); Absolute Monocytes 0.7 10^3/uL (0.1-0.6); Absolute Neutrophils 3.1 10^3/uL (1.4-6.5); Hematocrit 38.4 % (39.0-52.0); Hemoglobin 12.6 g/dL (13.0-18.0); Mean Corp Hgb Conc. 32.8 g/dL (33.0-37.0); Mean Corpuscular Hgb 29.4 pg (27.0-31.0); Mean Corpuscular Volume 89.5 fL (80.0-94.0); Mean Platelet Volume 10.3 fL (7.4-10.4); Nucleated Red Blood Cells % 0 % (-); Platelet Count 182 10^3/uL (130-400); Red Blood Cell Count 4.29 10^6/uL (4.70-6.10); Red Cell Dist. Width 13.2 % (11.5-14.5); White Blood Cell Count 5.6 10^3/uL (4.8-10.8)
[2025-04-09 05:55] LABS: ALT (SGPT) 53 U/L (0-50); AST (SGOT) 43 U/L (17-59); Albumin 3.3 g/dl (3.5-5.0); Alkaline Phosphatase 112 U/L (38-126); Blood Urea Nitrogen 20 mg/dl (9-20); Calcium 8.8 mg/dl (8.4-10.2); Carbon Dioxide 24 mmol/L (22-30); Chloride 115 mmol/L (98-107); Estimated Creatinine Clearance 103 ml/min; Glucose 126 mg/dl (70-99); HDL Cholesterol 67 mg/dl; LDL Cholesterol, Calculated 45 mg/dl; Potassium 4.4 mmol/L (3.5-5.1); Sodium 140 mmol/L (135-145); Total Bilirubin 0.4 mg/dl (0.2-1.3); Total Cholesterol 120 mg/dl (50-199); Total Protein 5.5 g/dl (6.3-8.2); Triglyceride 44 mg/dl (10-149); Very Low Density Lipoprotein 8 mg/dl (0-30); eGFR > 60.00
--- NOTE | 2025-04-09 07:35 | CON.CAR ---
Addendum entered and electronically signed by Jose Pineda MD 04/09/25 08:40:
I saw and examined the patient.
The Fuse Coiler's note was reviewed and I agree with the note.
Comment:
GEN: No distress, awake, Ox3
HEENT: supple, anicteric, mmm
LUNGS: CTA, no wheezes/rales
CV: Reg, S1/S2, 1/6 syst LSB, no gallop
ABD: soft, BS+, NT/ND
EXT: No edema
NEURO: Gross non-focal
SKIN: No rash
Plan:
74-year-old male with past medical history of CABG/mitral valve repair 2018, ischemic cardiomyopathy, chronic heart failure with mildly reduced ejection fraction, paroxysmal atrial fibrillation status post ablation November 2024, possible
Antithrombin III deficiency, sleep apnea, diabetes, hypertension and TIA who presents with an episode of ventricular tachycardia. His symptoms started suddenly last night with chest pains and shortness of breath. He came to the emergency room was
found to be in VT at 216 bpm. He was given amiodarone and ultimately converted to sinus rhythm with 2-1 AV block. Since given amiodarone he feels much better. He states he has had some mild dyspnea on exertion recently but no chest pains,
palpitations, dizziness, or syncope. He has done well since his A-fib ablation in November. He was briefly off Eliquis for 2 days to be evaluated for Antithrombin III deficiency but did take a dose last night.
Will start with an echocardiogram and cardiac cath to look for occult coronary artery disease in the setting of sustained ventricular tachycardia. Hold Eliquis for now.
I suspect this could be from scar from his previous CABG/ischemic cardiomyopathy. Continue IV amiodarone and convert to oral amiodarone today. Start 400 mg p.o. 3 times daily.
Continue Toprol 12.5 mg p.o. twice daily. Hold lisinopril for now with borderline blood pressures. He has not tolerated further afterload reducing agents due to hypotension.
Continue aspirin, atorvastatin, and Zetia. Check lipids.
Will mantilla check SGLT2 inhibitors for him this admission as well.
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
Original Note:
Consultation
Consultation Request
Date/Time Consultation Requested: 04/09/2025
Date/Time Consultation Performed: 04/09/2025
Requesting Provider: Dr. Tesfaye
Performing Provider: Nupur Damon PA-C for Dr. Pineda
Reason for Consultation: Chest pain, VT
Medical History
-
History of Present Illness:
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
and prior TIA who presented to [facility] ER for evaluation after he awoke in the middle of the night with chest pain and SOB. He reports symptoms last night were different than his prior afib/flutter symptoms and he had never felt anything like this
before. He took off his BiPAP and continued to feel chest pain, so drove him to . On arrival to ER, he was noted to be in VT on initial EKG with HR 216 bpm. He was given amiodarone and x2 and after 2nd dose converted to SR with 2:1 AV block.
He states with mandaeism of SR, symptoms improved and he has been feeling well without recurrent chest pain or SOB overnight on amiodarone gtt. Remains in SR this AM. HR stable.
PMH:
Paroxysmal atrial fibrillation
s/p PFA 12/26/2024
Chronic Eliquis anticoagulation
CAD
s/p CABG x3 (NEWBY to LAD, SVG to OM, SVG to RPL) 04/18/2019
s/p mitral valve ring repair 04/18/2019
ICM
Chronic HFmrEF
Bilateral carotid artery disease w/ R carotid occlusion
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
DEEPIKA/BiPAP
DM
HLD
HTN
h/o TIA/CVA (2020)
BPH s/p TURP (06/2022)
Past Medical History
Past Medical History: Other (In HPI)
Past Surgical History: Cardiac (MV repair, CABG 2018, R fem endarterectomy 2022) and Other (TURP, cataract surgery)
Social History
Tobacco: Non-Smoker
Alcohol: None
Drug: None
Personal:
Living: With Family
Employment: Retired
Family History
Family History: CAD and Diabetes
Allergies / Home Medications
Allergy/AdvReac Type Severity Reaction Status Date / Time
No Known Allergies Allergy Verified 12/26/24 10:43
�Medication �Instructions �Recorded �Confirmed �Type
atorvastatin 80 mg tablet 80 mg PO QPM ##30 04/23/19 04/09/25 Rx
lisinopril 5 mg tablet 2.5 mg PO DAILY Blood pressure 07/21/22 04/09/25 History
metoprolol succinate 25 mg 12.5 mg PO BID Blood pressure 07/21/22 04/09/25 History
tablet,extended release 24 hr
apixaban 5 mg tablet (Eliquis) 5 mg PO BID Blood clot 03/09/23 04/09/25 History
prevention/tx
ezetimibe 10 mg tablet 10 mg PO DAILY High cholesterol 03/09/23 04/09/25 History
aspirin 81 mg tablet,delayed 81 mg PO DAILY 12/10/24 04/09/25 History
release
Review of Systems
-
History Source: Patient
All other systems: Negative unless noted
Physical Exam
Vital Signs
Temp Pulse Resp BP Pulse Ox
98.5 F 70 20 107/67 98
04/09/25 07:21 04/09/25 04:48 04/09/25 07:21 04/09/25 04:48 04/09/25 07:21
Lab Results
04/09/25 04:58
04/09/25 04:58
Troponin I 0.022 ng/ml 04/08/25 22:38
Svv-X-Yfxmxryplkx Pept 156 pg/ml 04/08/25 22:38
Physical Exam
General: Well Developed and Well Nourished
HEENT: Normocephalic and Moist Mucous Membranes
Respiratory: Clear and Non Labored Respirations
Cardiac: S1/S2 and Regular Rhythm
Musculoskeletal: No Clubbing, No Cyanosis and No Edema
Skin: Warm and Dry
Neuro: AO x 3 and Nonfocal/Grossly Intact
Psych: Calm
Impression / Plan
-
PCP:
Wire Galvanizer:
Impression:
Presented with chest pain, SOB
Ventricular tachycardia
2:1 AV block
Paroxysmal atrial fibrillation
s/p PFA 12/26/2024
Chronic Eliquis anticoagulation
CAD
s/p CABG x3 (NEWBY to LAD, SVG to OM, SVG to RPL) 04/18/2019
s/p mitral valve ring repair 04/18/2019
ICM
Chronic HFmrEF
Bilateral carotid artery disease w/ R carotid occlusion
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
DEEPIKA/BiPAP
DM
HLD
HTN
h/o TIA/CVA (2020)
BPH s/p TURP (06/2022)
Echo 11/18/2024: EF 40%, basal inferior and inferolateral akinesis, mild cLVH, s/p MV repair w/ peak/mean gradients 6/2 mmHg, trace TR, estimated PAP 20-25 mmHg
IRENA 12/24/2024: EF 40%, severe hypokinesis of the basal to mid inferior and inferolateral wall, MV ring repair in place and functioning well with trace MR, mild
Echo 04/09/2025: Study pending
Plan:
-Presented with chest pain and SOB which awoke him from sleep. On arrival to ER noted to be in VT on initial ECG with HR 216 bpm.
-Started on amiodarone and broke to SR with 2:1 AV block. Remains in SR this AM. HR stable. 2:1 AV block no longer noted.
-Given known h/o CAD with chest pain and VT on arrival, will check echo and plan for LHC today.
-Alex remains on hold. Has been on hold the past 2 days as OP for antithrombin III deficiency workup.
-Troponin 0.022 on arrival. Will continue to trend to peak.
-Feels well now that he is back in SR. No further chest pain or SOB noted.
-Continue Toprol 12.5mg BID and lisinopril 2.5mg daily. BP stable.
-Continue aspirin, atorvastatin, and zetia. LDL 45.
-K 4.4, mag 2.3.
-TSH 1.70.
-Eventually will plan for ICD implant given VT on arrival. Timing TBD.
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
and prior TIA who presented to [facility] ER for evaluation after he awoke in the middle of the night with chest pain and SOB. He reports symptoms last night were different than his prior afib/flutter symptoms and he had never felt anything like this
before. He took off his BiPAP and continued to feel chest pain, so drove him to . On arrival to ER, he was noted to be in VT on initial EKG with HR 216 bpm. He was given amiodarone and x2 and after 2nd dose converted to SR with 2:1 AV block.
He states with mandaeism of SR, symptoms improved and he has been feeling well without recurrent chest pain or SOB overnight on amiodarone gtt. Remains in SR this AM. HR stable.
Data Reviewed
-
EKG: Tracing Personally Visualized and interpreted
Labs: Labs Reviewed by me
Old Records: Reviewed
[2025-04-09] MEDS: LOW STRENGTH ASPIRIN 81 MG PO (08:49)
[2025-04-09] MEDS: ZETIA 10 MG PO (08:49)
[2025-04-09 09:44] LABS: Troponin I 0.541 ng/ml
--- NOTE | 2025-04-09 14:26 | CM ---
CM following for DC planning needs.
Met w/ patient at bedside to complete initial assessment.
Pt. resides alone in a private home. He is functionally indep. w/ ADLs, mobility without the use of any assisted device.
Pt. has RX plan and uses [facility] for prescription needs.
Antic. DC to home, no needs.
Will follow.
--- NOTE | 2025-04-09 14:41 | W.PN.HOSP.TC ---
Today's Communication/Plan
-
See plan
Assessment / Plan
Assessment / Plan
Impression.
Symptomatic ventricular tachycardia
� Presenting with chest pain and shortness of breath
Troponin elevation likely secondary to nonischemic cardiac injury in the settings of VT
Other conditions:
CAD.
Status post CABG x 3 04/14
status post mitral valve repair 04/14.
Ischemic cardiomyopathy baseline chronic CHF mildly reduced EF.
Paroxysmal atrial fibrillation.
� Status post PFA 12/21.
Anticoagulation with Eliquis.
Bilateral carotid artery disease status post right carotid occlusion.
PAD with history of revascularization.
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
Obstructive sleep apnea on BiPAP
Diabetes by history, not on any glucose lowering medications prior to admission per
Dyslipidemia
History of TIA/CVA 2020.
BPH with history of TURP 2021
Plan:
Symptomatic ventricular tachycardia, presenting with chest pain and shortness of breath
Documented VT in the emergency room at rate of 216
Treated with IV amiodarone 150 mg x 2 with conversion to sinus rhythm with 2-1 AV block.
Transition to oral amiodarone.
Follow-up echocardiogram with now decreased EF 20 to 25% with segmental wall motion abnormalities decreased from prior 40 to 45%.
Plan is for ischemic evaluation and possibly AICD.
Maintain amiodarone, beta-prema as per cardiology.
Continue aspirin.
Noted with troponin elevation likely due to nonischemic cardiac injury in the settings of rapid VT. Will monitor trend.
CAD with prior CABG plan
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
Atrial fibrillation
Continue beta-prema
Currently on amiodarone for VT.
Hold Eliquis anticipating ischemic evaluation
Anticipated Discharge: 24 - 48 hours
Subjective/Interval History
-
Date of Service: April 09, 2025
Objective Data
-
Labs:
Laboratory Results
04/09/25
04:58
WBC 5.6
Hgb 12.6 L
Hct 38.4 L
Plt Count 182
Sodium 140
Potassium 4.4
Chloride 115 H
Carbon Dioxide 24
BUN 20
Creatinine 0.6 L
Glucose 126 H
Calcium 8.8
Total Bilirubin 0.4
AST 43
ALT 53 H
Alkaline Phosphatase 112
Vital Signs:
Vital Signs
Temp Pulse Resp BP Pulse Ox
98.2 F 63 20 108/75 99
04/09/25 11:40 04/09/25 09:30 04/09/25 11:40 04/09/25 08:39 04/09/25 11:40
I&O
04/08/25 04/09/25 04/10/25
06:59 06:59 06:59
Intake Total 240 / 240
Balance 240 / 240
Physical Exam
-
General: Well Developed and No Apparent Distress
HEENT: Normocephalic, Atraumatic and Moist Mucous Membranes
Respiratory: Clear to Auscultation
Cardiac: Regular Rhythm and S1/S2; Negative Murmur, Rub or Gallop
GI: Soft, Nontender, Nondistended and Normal Bowel Sounds; Negative Organomegaly
Rectal: Deferred by Provider
Musculoskeletal: No Clubbing, No Cyanosis and No Edema
Skin: Negative Rash
Neuro: Nonfocal/Grossly Intact
--- NOTE | 2025-04-09 15:05 | CM ---
Priced the following medications thru patient's insurance plan/ [employer]- [phone].
Farxiga- estimated to be 143.90/ mo
Jardiance- estimated to be 151.30/mo
HOWEVER, patient has PACE per his pharmacy; therefore, I anticipate both medications to be reduced to a less than $10 co pay/mo
[2025-04-09 17:11] LABS: Troponin I 0.322 ng/ml
--- NOTE | 2025-04-09 17:37 | PTCARENOTE ---
Discussed plan for cardiac cath in th morning. Pt remains in NSR w/ 1st degree heart block and BBB. VSS. Amiodarone drip remains at 0.5 mg/min. Amiodarone po to begin at 2200 and amiodarone drip will be d/c'd at 2230, per MD order. Will monitor.
[2025-04-09] MEDS: LIPITOR 80 MG PO (18:12)
--- NOTE | 2025-04-09 19:31 | PTCARENOTE ---
Pt received from previous shift resting in bed, denies any pain/discomfort or SOB. Amio gtt infusing @ 0.5 mg/min, SR on the monitor with HR 70's. Pt questioned about his dx DEEPIKA and Cpap use at home and stated 'I don't always use it at home, and
don't want to have a CPap while I am here in the hospital'. Education provided to pt, however continued to refuse. Call sharma within reach, POC ongoing.
[2025-04-09] MEDS: TOPROL XL 12.5 MG PO (20:27)
[2025-04-09] MEDS: PACERONE 400 MG PO (22:03)
--- NOTE | 2025-04-09 22:35 | PTCARENOTE ---
Amiodarone gtt infusing at 0.5mg/min via R FA d/c at 2230, IV line flushed and discontinued.
[2025-04-10] VITALS (13 sets, daily range): BP systolic 116–136; BP diastolic 64–98; BMI 28.9
[2025-04-10 04:53] LABS: % Basophils 0.7 % (0-2); % Eosinophils 2.2 % (0-6); % Immature Granulocytes 0.9 % (0-0.5); % Lymphocytes 33.4 % (20.5-51.1); % Monocytes 10.6 % (1.7-9.3); % Neutrophils 52.2 % (42.2-75.2); Absolute Eosinophils 0.1 10^3/uL (0-0.7); Absolute Immature Granulocytes 0.1 10^3/uL (0-0.05); Absolute Lymphocytes 1.9 10^3/uL (1.2-3.4); Absolute Monocytes 0.6 10^3/uL (0.1-0.6); Hematocrit 40.3 % (39.0-52.0); Hemoglobin 13.4 g/dL (13.0-18.0); Mean Corp Hgb Conc. 33.3 g/dL (33.0-37.0); Mean Corpuscular Hgb 29.4 pg (27.0-31.0); Mean Corpuscular Volume 88.4 fL (80.0-94.0); Mean Platelet Volume 10.3 fL (7.4-10.4); Nucleated Red Blood Cells % 0 % (-); Platelet Count 189 10^3/uL (130-400); Red Blood Cell Count 4.56 10^6/uL (4.70-6.10); Red Cell Dist. Width 13.2 % (11.5-14.5); White Blood Cell Count 5.8 10^3/uL (4.8-10.8)
[2025-04-10 05:10] LABS: ALT (SGPT) 41 U/L (0-50); AST (SGOT) 29 U/L (17-59); Albumin 3.4 g/dl (3.5-5.0); Alkaline Phosphatase 89 U/L (38-126); Blood Urea Nitrogen 22 mg/dl (9-20); Calcium 9.1 mg/dl (8.4-10.2); Carbon Dioxide 24 mmol/L (22-30); Chloride 111 mmol/L (98-107); Estimated Creatinine Clearance 88 ml/min; Glucose 119 mg/dl (70-99); Potassium 4.7 mmol/L (3.5-5.1); Sodium 139 mmol/L (135-145); Total Bilirubin 0.4 mg/dl (0.2-1.3); Total Protein 5.9 g/dl (6.3-8.2); eGFR > 60.00
[2025-04-10] MEDS: NSS 1000 IV (09:18)
[2025-04-10] MEDS: LOW STRENGTH ASPIRIN 81 MG PO (09:22)
[2025-04-10] MEDS: TOPROL XL 12.5 MG PO ×2 (09:22→19:53)
[2025-04-10] MEDS: ZETIA 10 MG PO (09:22)
[2025-04-10] MEDS: PACERONE 400 MG PO ×3 (09:34→22:20)
--- NOTE | 2025-04-10 09:46 | ITS.CL.CATH ---
Trauma Program Manager - Catheterization
Cardiac Catheterization
Procedure Report:
LEFT HEART CATHETERIZATION
Date of Procedure: April 10, 2025
Referring: Lev Pineda
PROCEDURES:
1. Left heart catheterization, coronary angiogram.
2. Moderate sedation.
3. Selective graft angiography.
INDICATION: Concern for NSTEMI
ACCESS: Left radial artery, 6Fr. sheath, under US guidance.
HEMODYNAMICS : (mmHg)
AO (s/d) : 96/54
LVEDP : 12
No significant gradient across the aortic valve to suggest aortic stenosis.
CORONARY FINDINGS
Dominance: Right
Left Main Trunk (LMT): Large caliber vessel that gives rise to the LAD and LCx branches and is free of angiographic disease.
Left Anterior Descending Artery (LAD): Large caliber vessel that gives off multiple small caliber diagonal branches as it courses along the anterior inter-ventricular groove before wrapping around the cardiac apex. The left anterior descending
artery has a 80% stenosis in the midportion with competitive flow noted from a patent NEWBY graft.
Left Circumflex Artery (LCx): Large caliber vessel with 100% occlusion in the midportion with a patent saphenous vein graft.
Right Coronary Artery (RCA): Large caliber dominant vessel that gives rise to the posterior descending artery (RPDA) and postero-lateral ventricular (RPLV) branches distally. The RCA and its branches are free of angiographic disease.
GRAFT ANGIOGRAPHY:
1. NEWBY to LAD is widely patent.
2. Saphenous vein graft with skip graft to left circumflex/OM and RPL are widely patent.
SEDATION: 47 minutes of procedural sedation was utilized. IV Midazolam and IV Fentanyl were administered. An independent medical asst was present to assist with and help manage the patient's level of consciousness and physiologic status.
RADIATION SUMMARY: Fluoro Time (min): 8.5, Dose (mGy): 493.9, DAP (Gy.cm2) : 34.18
Closure Device: There were no immediate intra-procedural complications. The sheath was pulled in the liaison inspection laboratory assistant and a vascular-band applied to the left wrist for radial artery hemostasis using the patent hemostasis technique.
CONCLUSIONS
1. Significant [place] coronary artery disease.
2. Patent NEWBY graft to LAD.
3. Patent saphenous vein graft to left circumflex/OM with skip graft to RPL.
RECOMMENDATIONS
1. Wean radial band per protocol. Monitor right hand perfusion and for bleeding from the radial site following removal of the vascular-band following trans-radial access.
2. Continue aggressive medical therapy for severe ischemic cardiomyopathy and risk factor modification for secondary CAD prevention.
3. Hydrate with normal saline to mitigate the risk of contrast-induced acute kidney injury.
4. Defer to electrophysiology in regards to management of ventricular tachycardia.
Copy to: Lev Pineda and Grady Green
Joie Fernandez MD, FACC, [facility]
--- NOTE | 2025-04-10 12:01 | W.PN.HOSP.TC ---
Today's Communication/Plan
-
AICD tentative in am
cont asa/statin/zetia
cont high amiodarone dose
eliquis for cardiac procedure per cards
monitor lytes
Assessment / Plan
Assessment / Plan
Impression.
Symptomatic ventricular tachycardia
� Presenting with chest pain and shortness of breath
Troponin elevation likely secondary to nonischemic cardiac injury in the settings of VT
Other conditions:
CAD.
Status post CABG x 3 04/14
status post mitral valve repair 04/14.
Ischemic cardiomyopathy baseline chronic CHF mildly reduced EF.
Paroxysmal atrial fibrillation.
� Status post PFA 12/21.
Anticoagulation with Eliquis.
Bilateral carotid artery disease status post right carotid occlusion.
PAD with history of revascularization.
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
Obstructive sleep apnea on BiPAP
Diabetes by history, not on any glucose lowering medications prior to admission per
Dyslipidemia
History of TIA/CVA 2020.
BPH with history of TURP 2021
Plan:
Symptomatic ventricular tachycardia, presenting with chest pain and shortness of breath
Documented VT in the emergency room at rate of 216
Treated with IV amiodarone 150 mg x 2 with conversion to sinus rhythm with 2-1 AV block.
Transition to oral amiodarone.
Follow-up echocardiogram with now decreased EF 20 to 25% with segmental wall motion abnormalities decreased from prior 40 to 45%.
possibly AICD in AM.
Maintain amiodarone, beta-prema as per cardiology.
Continue aspirin.
Noted with troponin elevation likely due to nonischemic cardiac injury in the settings of rapid VT. Will monitor trend.
s/p cardiac cath-per patient no intervention required. Awaiting official report.
CAD with prior CABG plan
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
Atrial fibrillation
Continue beta-prema
Currently on amiodarone for VT.
Hold Eliquis anticipating FOR all cardiac procedures
Anticipated Discharge: > 48 hours
Subjective/Interval History
-
Date of Service: April 10, 2025
denies any chest pain or palpations
underwent cath earlier today
Objective Data
-
Labs:
Laboratory Results
04/10/25
04:07
WBC 5.8
Hgb 13.4
Hct 40.3
Plt Count 189
Sodium 139
Potassium 4.7
Chloride 111 H
Carbon Dioxide 24
BUN 22 H
Creatinine 0.7
Glucose 119 H
Calcium 9.1
Total Bilirubin 0.4
AST 29
ALT 41
Alkaline Phosphatase 89
Vital Signs:
Vital Signs
Temp Pulse Resp BP Pulse Ox
97.7 F 74 20 116/78 99
04/10/25 11:54 04/10/25 09:22 04/10/25 11:54 04/10/25 09:22 04/10/25 11:54
I&O
04/09/25 04/10/25 04/11/25
06:59 06:59 06:59
Intake Total 240 / 240 700.4 / 700.4
Balance 240 / 240 700.4 / 700.4
Physical Exam
-
General: Well Developed and No Apparent Distress
HEENT: Normocephalic, Atraumatic and Moist Mucous Membranes
Respiratory: Clear to Auscultation
Cardiac: Regular Rhythm and S1/S2; Negative Murmur, Rub or Gallop
GI: Soft, Nontender, Nondistended and Normal Bowel Sounds; Negative Organomegaly
Rectal: Deferred by Provider
Musculoskeletal: No Clubbing, No Cyanosis, No Edema and Other (Left wrist band -cath site noted. No hematoma. no pain. )
Skin: Negative Rash
Neuro: Awake, No Motor Deficits and Nonfocal/Grossly Intact
Psych: Calm
--- NOTE | 2025-04-10 12:28 | PTCARENOTE ---
Received pt post cath. VSS. Right radial R band intact. Orders noted. Pt denies chest pain or SOB. Right ACW pacer pad removed in clinical lab clerk. Small blister wound noted that broke open on right ACW. No active drainage noted. Wound cleaned.
aware. Will monitor.
--- NOTE | 2025-04-10 14:45 | CM ---
CM following for DC planning needs.
Met w/ patient + spouse at bedside.
Pt. reports that he is feeling well; has just returned from CATH.
Plan is for ICD in the AM.
We reviewed estimated cost of Diannediliv/ Farxiga. Confirmed that patient has PACE-cost should be below $10.
Will follow up on Monday.
Antic. DC to home, no needs.
[2025-04-10] MEDS: LIPITOR 80 MG PO (16:17)
--- NOTE | 2025-04-10 20:54 | PTCARENOTE ---
Pt rec'd at change of shift lying in bed reading a book. Pt denies sob or complaints of pain. Aware of npo status after mn for ICD placement in am.
[2025-04-11] VITALS (9 sets, daily range): BP systolic 110–146; BP diastolic 62–97; BMI 28.8
[2025-04-11 06:06] LABS: % Basophils 0.8 % (0-2); % Eosinophils 2.4 % (0-6); % Immature Granulocytes 0.8 % (0-0.5); % Lymphocytes 27.9 % (20.5-51.1); % Monocytes 9.9 % (1.7-9.3); % Neutrophils 58.2 % (42.2-75.2); Absolute Basophils 0.1 10^3/uL (0-0.2); Absolute Eosinophils 0.2 10^3/uL (0-0.7); Absolute Immature Granulocytes 0.1 10^3/uL (0-0.05); Absolute Lymphocytes 1.7 10^3/uL (1.2-3.4); Absolute Monocytes 0.6 10^3/uL (0.1-0.6); Absolute Neutrophils 3.6 10^3/uL (1.4-6.5); Hemoglobin 14.7 g/dL (13.0-18.0); Mean Corp Hgb Conc. 33.4 g/dL (33.0-37.0); Mean Corpuscular Hgb 29.4 pg (27.0-31.0); Mean Platelet Volume 10.5 fL (7.4-10.4); Nucleated Red Blood Cells % 0 % (-); Platelet Count 186 10^3/uL (130-400); Red Cell Dist. Width 13.2 % (11.5-14.5); White Blood Cell Count 6.2 10^3/uL (4.8-10.8)
--- NOTE | 2025-04-11 06:07 | PTCARENOTE ---
Pt's chest clipped and washed with chg cloths in preparation for ICD placement. pt remains npo at this time.
[2025-04-11 06:36] LABS: ALT (SGPT) 38 U/L (0-50); AST (SGOT) 25 U/L (17-59); Albumin 3.9 g/dl (3.5-5.0); Alkaline Phosphatase 91 U/L (38-126); Blood Urea Nitrogen 25 mg/dl (9-20); Calcium 9.3 mg/dl (8.4-10.2); Carbon Dioxide 25 mmol/L (22-30); Chloride 111 mmol/L (98-107); Estimated Creatinine Clearance 77 ml/min; Glucose 127 mg/dl (70-99); Potassium 4.8 mmol/L (3.5-5.1); Sodium 140 mmol/L (135-145); Total Bilirubin 0.5 mg/dl (0.2-1.3); Total Protein 6.2 g/dl (6.3-8.2); eGFR > 60.00
[2025-04-11] MEDS: PACERONE 400 MG PO ×3 (08:17→22:06)
[2025-04-11] MEDS: LOW STRENGTH ASPIRIN 81 MG PO (08:17)
[2025-04-11] MEDS: ZETIA 10 MG PO (08:17)
[2025-04-11] MEDS: TOPROL XL 12.5 MG PO ×2 (08:18→19:34)
[2025-04-11] MEDS: FLUSH (NSS) 1 FLUSH IV (08:20)
--- NOTE | 2025-04-11 09:10 | PTCARENOTE ---
Patient ambulating in the [place] with his this morning, requesting to speak with Dr. Green. Dr. Green did stop in and speak with them however ICD placement to be done by Dr. Figueroa who also saw the patient and his at the bedside,
procedure and plan explained. Patient NPO x meds for ICD later this morning.
--- NOTE | 2025-04-11 09:16 | W.PN.HOSP.TC ---
Today's Communication/Plan
-
NPO for AICD
cont w/amio/bb
Eliqiuis held for now
Assessment / Plan
Assessment / Plan
Impression.
Symptomatic ventricular tachycardia
� Presenting with chest pain and shortness of breath
Troponin elevation likely secondary to nonischemic cardiac injury in the settings of VT
Other conditions:
CAD.
Status post CABG x 3 04/14
status post mitral valve repair 04/14.
Ischemic cardiomyopathy baseline chronic CHF mildly reduced EF.
Paroxysmal atrial fibrillation.
� Status post PFA 12/21.
Anticoagulation with Eliquis.
Bilateral carotid artery disease status post right carotid occlusion.
PAD with history of revascularization.
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
Obstructive sleep apnea on BiPAP
Diabetes by history, not on any glucose lowering medications prior to admission per
Dyslipidemia
History of TIA/CVA 2020.
BPH with history of TURP 2021
Plan:
Symptomatic ventricular tachycardia, presenting with chest pain and shortness of breath
Documented VT in the emergency room at rate of 216
Treated with IV amiodarone 150 mg x 2 with conversion to sinus rhythm with 2-1 AV block.
Transition to oral amiodarone.
Follow-up echocardiogram with now decreased EF 20 to 25% with segmental wall motion abnormalities decreased from prior 40 to 45%.
NPO for ACID today by EP
Maintain amiodarone, beta-prema as per cardiology.
Continue aspirin.
Noted with troponin elevation likely due to nonischemic cardiac injury in the settings of rapid VT. Will monitor trend.
s/p cardiac cath-per patient no intervention required.
CAD with prior CABG plan
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
Atrial fibrillation
Continue beta-prema
Currently on amiodarone for VT.
Hold Eliquis anticipating FOR all cardiac procedures. Restart per EP post procedure
d/w with spouse at bedside in details
Anticipated Discharge: Within 24 hours
Subjective/Interval History
-
Date of Service: April 11, 2025
awaiting for procedure
no overnight events
Objective Data
-
Labs:
Laboratory Results
04/11/25
05:53
WBC 6.2
Hgb 14.7
Hct 44.0
Plt Count 186
Sodium 140
Potassium 4.8
Chloride 111 H
Carbon Dioxide 25
BUN 25 H
Creatinine 0.8
Glucose 127 H
Calcium 9.3
Total Bilirubin 0.5
AST 25
ALT 38
Alkaline Phosphatase 91
Vital Signs:
Vital Signs
Temp Pulse Resp BP Pulse Ox
98.4 F 58 18 139/68 96
04/11/25 07:45 04/11/25 07:46 04/11/25 07:45 04/11/25 07:46 04/11/25 07:46
I&O
04/10/25 04/11/25 04/12/25
06:59 06:59 06:59
Intake Total 700.4 / 700.4 378 / 378
Balance 700.4 / 700.4 378 / 378
Physical Exam
-
General: Well Developed and No Apparent Distress
HEENT: Normocephalic, Atraumatic and Moist Mucous Membranes
Respiratory: Clear to Auscultation
Cardiac: Regular Rhythm and S1/S2; Negative Murmur, Rub or Gallop
GI: Soft, Nontender, Nondistended and Normal Bowel Sounds; Negative Organomegaly
Rectal: Deferred by Provider
Musculoskeletal: No Clubbing, No Cyanosis and No Edema
Skin: Negative Rash
Neuro: Awake, No Motor Deficits and Nonfocal/Grossly Intact
Psych: Calm
--- NOTE | 2025-04-11 10:26 | W.PN.UPDATE ---
Update Note
Progress Note Update
Briefly, patient is a pleasant 74-year-old male with a past medical history significant for multivessel CABG with mitral valve repair 2018, ischemic cardiomyopathy, chronic heart failure with reduced ejection fraction, paroxysmal atrial fibrillation
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
Patient had return sinus rhythm with amiodarone. Patient converted with high degree AV block/2�1 AV block for which she was also symptomatic. Left heart catheterization showed no new obstructive coronary disease. Echocardiogram performed during
hospitalization demonstrated a reduced LVEF of 20 to 25%. Patient reports NYHA II-III symptoms. Patient unable to tolerate afterload reducing medications due to hypotension and has need for AV vipin blocking agents in the setting of heart failure
with reduced ejection fraction and amiodarone for sustained VT. With this in mind, given patient's anticipated high pacing burden due to high degree AV block/2�1 AV block with need for AV vipin blocking agent/amiodarone with recent sustained
monomorphic ventricular tachycardia, QRS greater than 120 ms, patient to benefit from implantation of secondary prevention biventricular ICD/INSPECTOR FLOOR-D. Regarding INSPECTOR FLOOR and ICD, we discussed ICD indications for primary prevention and secondary prevention
patients including 5 year sudden risk. We also discussed implant procedure in detail including an approximate 1:1000 risk of MO/stroke/ and a 1% risk of pneumothorax/tamponade/infection/bleeding. We discussed the less than 1% risk of
wires bending, breaking, or tearing through the lifetime of the device requiring surgery or procedure to fix. We discussed the less than 1% risk of device/lead advisory or recall and requirement for monitoring for surveillance. We also discussed
post procedure implant restrictions including positions to avoid with implant arm for first six weeks after implant as well as driving restrictions. We discussed post implant possibility of inappropriate shocks from device and programming strategies
to minimize this risk. Specifically for cardiac resynchronization we discussed that 2/3 of patients can see an improvement in symptoms or EF% and that 95% of patients can get an endocardial lead at time of implant. Patients with left bundle branch
block with wide QRS typically do best with implant with a minimum QRS duration of 120msec considered for implant. In fact for patients with prior RBBB, INSPECTOR FLOOR may be harmful. Prior cardiac surgery can reduce the chance of usable anatomy in which case
an epicardial lead placement can be considered. We also discussed the possibility of utilizing the conduction system pacing lead in order to access the left bundle branch area in order to improve cardiac function and possible resynchronization. I
took time to answer all questions with patient and his . Following thorough and thoughtful discussion and shared decision making, patient consented for procedure. Patient remains NPO.
--- NOTE | 2025-04-11 11:02 | ITS.CL.ICD ---
Addendum entered and electronically signed by Dale Nava DO 04/11/25 15:41:
Addendum:
- If patient and site stable OK to resume OAC on 04/13/2025 AM
- Would continue amiodarone load 400 mg TID through the weekend and monitor on telemetry for recurrent ventricular arrhythmia. Would DC on amiodarone taper 400 BID x 1 week, 200 BID x 1 week, 200 daily after that.
Addendum entered and electronically signed by Dale Nava DO 04/11/25 15:36:
CS venogram not performed.
Original Note:
Mobile Home Lot Utility Worker - ICD
Implantable Cardioverter Defibrillator
Procedure Report:
Primary Physician: Dr. Rachel Alejandro
Primary [employer] Electronics Wireman: Dr. Lev Pineda
Procedure Date: 04/11/2025
Procedure:
1: Implantation of DIRECTOR OF BLOOD-D utilizing LBBAP pacing lead for conduction system pacing
2: Subclavian venography
3. [ ] Coronary sinus venography
Indication/Diagnosis:
1. LBBB/IVCD with baseline QRS > 120 msec
2. CHF - NYHA class 3
3. LVEF < 35%
4. Sustained monomorphic VT (secondary prevention)
5. Anticipated high pacing burden with need for AVN blocking agents/antiarrhythmic medications
6. Symptomatic bradycardia with high degree AVB/second degree type 2/2:1 AVB
HISTORY: Please see office H&P.
After informed consent was obtained, the patient was brought to the EP laboratory in a postabsorptive, nonsedated state. Peripheral IV access was established. Prophylactic antibiotics were administered prior to incision. Continuous ECG, blood
pressure, and pulse oximetry were initiated. Cardioversion patch electrodes were placed on the patient's chest and back. A grounding patch was applied to the skin. Sedation was administered by anesthesia.
In order to define the extrathoracic portion of the subclavian vein and exclude significant venous obstruction or anomalous anatomy, subclavian venography was performed prior to the procedure. Using the patient's left peripheral IV, contrast was
injected and images were recorded. The left subclavian vein and SVC were found to be widely patent.
The left chest was prepared and draped in a sterile fashion. A 'time out' was called and confirmed. Local anesthesia was injected in the subcutaneous tissue in the infraclavicular area. An incision was made medial to the deltopectoral groove and
parallel to the clavicle. The subcutaneous tissue was dissected the level of the prepectoral fascia. A subcutaneous pocket was created. Under fluoroscopic guidance and with the assistance of the images from the venogram, three separate
venipunctures were made using micropuncture and modified Seldinger technique. These was performed in the extrathoracic portion of the subclavian vein. Guidewires were passed. Peel-away sheaths were placed, and were used to advance the leads into
the circulation.
Using fluoroscopic guidance, the leads were positioned. The RV lead was advanced to the RV outflow tract. Ventricular ectopy was recorded. Images were taken in GOETZ and ITALIAN views to ensure appropriate lead placement. The lead tip was subsequently
positioned in the RV apical septum. Adequate sensing and pacing parameters were found, and no diaphragmatic stimulation was seen with high-output pacing.
Fluoroscopy was used to determine likely anatomic site for left bundle branch pacing. The Medtronic C315 sheath was used to deliver the Medtronic 3830 Selectsecure pacing lead with the helix exposed just exposed from the sheath tip during continuous
monitoring when pacemapping the septum during gentle clockwise rotation to obtain a paced QRS morphology of a W pattern in lead V1. Once the suspected optimal site was identified, lead deployment was performed with several rapid rotations as paced
QRS morphology was intermittently monitored until a paced QRS complex in lead V1 demonstrated development of an R wave (qR or rSR). Unipolar pacing impedance dropped by approximately 100 ohms suggesting it had reached the left ventricular
subendocardial. Stable VEgm injury current is present throughout lead position and at end of case. Final unipolar pacing impedance is 1190 Ohms. Unipolar pacing threshold is stable at 1.0 V @ 0.4 ms. The patient had pre-existing left bundle branch
block/IVCD at baseline. Final conduction system paced QRS complex duration is 114 ms, LVAT is 87 ms, and peak V5 -> peak V1 timing is 45 ms. The C315 sheath was slit under fluoroscopy ensuring lead position and stability.
Next, the right atrial lead was positioned in the right atrial appendage. Adequate sensing and pacing parameters were found, and no diaphragmatic stimulation was seen with high-output pacing. All sheaths were split, and the leads were secured to
the fascia with Ethibond ties.
The pocket was flushed with antibiotic solution and hemostasis was assured. The generator was connected to the leads and placed inside the pocket. Antibiotic envelope was used. Floseal was applied. The wound was closed with 3 running layers of
absorbable suture, and steri-strips were applied. Defibrillator function testing was deferred.
Following the procedure, the patient was taken to the recovery area in stable condition.
IMPLANTS:
Device: Medtronic Model LJHF6O0, SN: [id number]
RA: Medtronic, Model 5076, SN: [id number]
RV ICD: Medtronic, Model 7046Y70, SN: [id number]
RV LBBAP: Medtronic 3830, SN:[id number], Interventricular septum at LBB
DEVICE TESTING:
RA: Sensing 2.0 mV, Capture 0.5V @ 0.4 msec, Impedance 750 ohms
RV (ICD lead): Sensing 7.0 mV, Capture 0.5V @ 0.4msec, Impedance 680 ohms
RV (LBBAP lead): Sensing 7.0 mV, Capture 0.75V @ 0.4msec, Impedance 670 ohms
FINAL PROGRAMMING
Thor Parameters: DDD with 60 to 130 ppm
Tachy Parameters: Monitor 150-188; FVT 188 ATP/Shock; VF>210 ATP while charging/shock
COMPLICATIONS:
There were no complications.
CONCLUSIONS:
1: Successful implantation of DIRECTOR OF BLOOD-D utilizing LBBAP pacing lead for conduction system pacing
RECOMMENDATIONS:
- Admit
- Chest x-ray tonight, [facility] in AM.
- IV antibiotics while the patient is admitted.
- OK to resume home medications as indicated
- Pressure dressing to be removed in AM, aquacell to remain until wound check
- Follow-up will be arranged in the office in 7-10 days post-discharge for incision check
Dale Nava DO, [facility], [facility]
Clinical Cardiac Cub Reporter
cc: Dr. Rachel Alejandro; Dr. Lev Pineda
--- NOTE | 2025-04-11 11:10 | W.ICD.CONTRA ---
Post ICD/SQL DBA-D
-
History of WI?: Yes
LV Function
Left ventricular function study result?: Ejection Fraction </= 35%
ACEI/ARB/ARNI
Patient already on ACEI/ARB/ARNI: Yes
Beta-Conner
Patient already on Beta Conner: Yes
--- NOTE | 2025-04-11 13:24 | PTCARENOTE ---
Patient returned from PACU after ICD left upper chest. Pressure dressing is dry and intact with arm immobilizer in place. at the bedside, monitoring VS, V paced on the monitor. Call sharma in reach.
[2025-04-11] MEDS: TYLENOL PO (14:53)
--- NOTE | 2025-04-11 16:38 | CM ---
CM following for DC planning needs.
Met w/ patient at bedside. He feels well, is hopeful for DC to home over w/e.
There are no antic. DC needs.
Plan is for home, no needs.
[2025-04-11] MEDS: ANCEF 5 IV (18:06)
[2025-04-11] MEDS: LIPITOR 80 MG PO (18:06)
[2025-04-11] MEDS: FLUSH (NSS) 2 FLUSH IV (18:06)
--- NOTE | 2025-04-11 23:59 | PTCARENOTE ---
Left anterior chest dressing intact, pressure dressing remains in place. Left arm in immobilizer. Patient educated and verbalized understanding in regards to activity restrictions. Tele remains AV/V paced w/ occasional PVCs. Denies any pain or
discomfort. Ambulates self in room w/out difficulty. Aware of POC, call sharma in reach.
[2025-04-12 02:18] VITALS: BP 141/95
[2025-04-12] MEDS: ANCEF 5 IV (02:20)
[2025-04-12 02:40] VITALS: BMI 28.9
[2025-04-12] MEDS: TYLENOL 650 MG PO (02:40)
[2025-04-12 02:49] LABS: Hematocrit 41.6 % (39.0-52.0); Hemoglobin 14.1 g/dL (13.0-18.0); Mean Corp Hgb Conc. 33.9 g/dL (33.0-37.0); Mean Corpuscular Hgb 29.6 pg (27.0-31.0); Mean Corpuscular Volume 87.4 fL (80.0-94.0); Mean Platelet Volume 10.4 fL (7.4-10.4); Platelet Count 173 10^3/uL (130-400); Red Blood Cell Count 4.76 10^6/uL (4.70-6.10); Red Cell Dist. Width 13.2 % (11.5-14.5); White Blood Cell Count 7.7 10^3/uL (4.8-10.8)
[2025-04-12 03:16] LABS: Blood Urea Nitrogen 24 mg/dl (9-20); Calcium 9.2 mg/dl (8.4-10.2); Carbon Dioxide 24 mmol/L (22-30); Chloride 108 mmol/L (98-107); Estimated Creatinine Clearance 88 ml/min; Glucose 104 mg/dl (70-99); Potassium 4.5 mmol/L (3.5-5.1); Sodium 138 mmol/L (135-145); eGFR > 60.00
[2025-04-12 08:59] VITALS: BP 139/78
[2025-04-12] MEDS: TOPROL XL 12.5 MG PO ×2 (09:02→19:35)
[2025-04-12] MEDS: LOW STRENGTH ASPIRIN 81 MG PO (09:02)
[2025-04-12] MEDS: PACERONE 400 MG PO ×3 (09:02→22:07)
[2025-04-12] MEDS: FARXIGA 10 MG PO (09:03)
[2025-04-12] MEDS: ZETIA 10 MG PO (09:03)
[2025-04-12] MEDS: DIOVAN 20 MG PO (09:04)
[2025-04-12] MEDS: FLUSH (NSS) 1 FLUSH IV (09:05)
--- NOTE | 2025-04-12 10:53 | PTCARENOTE ---
Received patient this morning ambulating in the stephens. Pressure dressing left upper chest is dry and intact, immobilizer removed as per orders. Patient offers no complaints, feels well, started on farxiga and diovan this morning as ordered.
--- NOTE | 2025-04-12 11:27 | W.PN.CARDCBS ---
Today's Communication / Plan
-
Continue amiodarone load as an inpatient given presenting monomorphic sustained VT
Resume Eliquis tomorrow if ICD site remains stable
Supportive postprocedural care
Impression / Plan
-
PCP:
Car Rental Agent:
Impression:
Presented with chest pain, SOB
Ventricular tachycardia
2:1 AV block
Paroxysmal atrial fibrillation
s/p PFA 12/26/2024
Chronic Eliquis anticoagulation
CAD
s/p CABG x3 (NEWBY to LAD, SVG to OM, SVG to RPL) 04/18/2019
s/p mitral valve ring repair 04/18/2019
ICM
Chronic HFmrEF
Bilateral carotid artery disease w/ R carotid occlusion
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
DEEPIKA/BiPAP
DM
HLD
HTN
h/o TIA/CVA (2020)
BPH s/p TURP (06/2022)
Echo 11/18/2024: EF 40%, basal inferior and inferolateral akinesis, mild cLVH, s/p MV repair w/ peak/mean gradients 6/2 mmHg, trace TR, estimated PAP 20-25 mmHg
IRENA 12/24/2024: EF 40%, severe hypokinesis of the basal to mid inferior and inferolateral wall, MV ring repair in place and functioning well with trace MR, mild
Plan:
Admitted with chest pain and episode of sustained monomorphic VT 04/08/25 with history of high degree AV block's/second-degree AV block, EF less than 35%, left bundle branch block and known multivessel coronary disease status post CABG 2018 and
mitral valve ring repair with known ischemic cardiomyopathy. Patient had chemical conversion to sinus rhythm following amiodarone
- Patient did not require resuscitation or shock
- Peak troponin 0.54; TSH 1.7; proBNP 156: LDL 45
-2D echocardiogram 04/09/2025 with EF 20-25% with dilated left ventricle and regional wall motion abnormalities in the inferior and inferolateral gamboa. Grade 2 diastolic dysfunction. Mildly reduced RV systolic function. Status post mitral valve
repair with mean gradient 4 mmHg and mild eccentric mitral regurgitation. Aortic sclerosis without stenosis. Mild TR. Estimated pulmonary artery pressure 35 mmHg. No pericardial effusion.
- Underwent cardiac catheterization 04/08/[address] Fernandez with NEWBY to LAD widely patent. Saphenous vein graft with skip graft to circumflex/OM and RPL widely patent. [place] coronary vessels with mid 80% LAD stenosis with competitive flow from
NEWBY graft. Circumflex 100% occlusion in the midportion with patent SVG graft. RCA and its branches are free of angiographic disease.
- Underwent placement of Medtronic LEGAL CONSULTANT/D using LBB pacing lead with Dr. Figueroa 04/11/2025
- Fortunately he is hemodynamically stable with no further VT or chest pain
- Will continue amiodarone load 400 mg 3 times daily through the weekend and discharged on amiodarone taper 400 mg twice daily for 1 week followed by 200 mg twice daily for 1 week followed by 200 mg daily thereafter
-EKG this morning AV dual placed rhythm
- Follow telemetry/EKGs
- Cath site intact
- Device site with mild swelling with pressure dressing but no significant hematoma or drainage.
- Pertinent labs post procedure: Hemoglobin 14.1, platelets 173,000, BUN/creatinine 24/0.7. Sodium 138, potassium 4.5.
- Plan to resume Eliquis 5 mg twice daily tomorrow 04/13/2025 if device site remains stable; patient had been on this previously for history of PE AF/flutter
- Continue goal-directed medical therapy for ischemic cardiomyopathy/CAD: Valsartan 20 mg daily, Farxiga 10 mg daily, metoprolol succinate 12.5 mg twice daily, aspirin 81 mg daily, atorvastatin 80 mg daily along with ezetimibe 10 mg daily.
- Post procedure wound care and activity restrictions reviewed
- Anticipate discharge in the next 24/48 hours
- Discussed with hospitalist
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
and prior TIA who presented to [facility] ER for evaluation after he awoke in the middle of the night with chest pain and SOB. He reports symptoms last night were different than his prior afib/flutter symptoms and he had never felt anything like this
before. He took off his BiPAP and continued to feel chest pain, so drove him to . On arrival to ER, he was noted to be in VT on initial EKG with HR 216 bpm. He was given amiodarone and x2 and after 2nd dose converted to SR with 2:1 AV block.
He states with quaker of SR, symptoms improved and he has been feeling well without recurrent chest pain or SOB overnight on amiodarone gtt. Remains in SR this AM. HR stable.
Progress Note - Car Rental Agent
Subjective
Date of Service: April 12, 2025
Patient seen and examined. He has no complaints and feels well following recent cardiac procedures. Mild tenderness at device site. No chest pain or pressure. No shortness of breath. No dizziness.
Objective
Labs:
04/12/25 02:34
04/12/25 02:34
Labs
Hgb 14.1 g/dL (13.0-18.0) 04/12/25 02:34
Hct 41.6 % (39.0-52.0) 04/12/25 02:34
Plt Count 173 10^3/uL (130-400) 04/12/25 02:34
PT 11.7 Sec (11.4-14.6) 04/08/25 22:38
INR 0.83 04/08/25 22:38
APTT 26.2 Sec (23.4-35.0) 04/08/25 22:38
Sodium 138 mmol/L (135-145) 04/12/25 02:34
Potassium 4.5 mmol/L (3.5-5.1) 04/12/25 02:34
BUN 24 mg/dl (9-20) H 04/12/25 02:34
Creatinine 0.7 mg/dL (0.7-1.3) 04/12/25 02:34
Glucose 104 mg/dl (70-99) H 04/12/25 02:34
Troponins
04/09/25 04/09/25
16:23 23:45
Troponin I 0.322 H* D Cancelled
Vital Signs and I&O:
Vital Signs
Temp Pulse Resp BP Pulse Ox
98.1 F 78 18 139/78 98
04/12/25 09:00 04/12/25 10:00 04/12/25 09:00 04/12/25 08:59 04/12/25 09:00
Vital Signs
Temp Pulse Resp BP Pulse Ox
98.1 F 78 18 139/78 98
04/12/25 09:00 04/12/25 10:00 04/12/25 09:00 04/12/25 08:59 04/12/25 09:00
Intake & Output
04/10/25 04/11/25 04/12/25 04/13/25
06:59 06:59 06:59 06:59
Intake Total 700.4 / 700.4 378 / 378 600 / 600
Output Total 350 / 350
Balance 700.4 / 700.4 378 / 378 250 / 250
Physical Exam
Physical Exam
AAOx3, MAEE 5/5
RRR S1 S2 no murmurs
Clear to auscultation bilateral
soft abd, + bs
bilat groin sites without ht/bleeding, non tender
Device site left anterior chest wall with pressure dressing and Aquacel. Mild swelling but no hematoma
bilat extremities w/palpable distal pulses, no edema
--- NOTE | 2025-04-12 12:33 | W.PN.HOSP.TC ---
Today's Communication/Plan
-
Continue amiodarone load.
Resume Eliquis tomorrow
Assessment / Plan
Assessment / Plan
Impression.
Symptomatic ventricular tachycardia
� Presenting with chest pain and shortness of breath
Troponin elevation likely secondary to nonischemic cardiac injury in the settings of VT
Other conditions:
CAD.
Status post CABG x 3 04/14
status post mitral valve repair 04/14.
Ischemic cardiomyopathy baseline chronic CHF mildly reduced EF.
Paroxysmal atrial fibrillation.
� Status post PFA 12/21.
Anticoagulation with Eliquis.
Bilateral carotid artery disease status post right carotid occlusion.
PAD with history of revascularization.
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
Obstructive sleep apnea on BiPAP
Diabetes by history, not on any glucose lowering medications prior to admission per
Dyslipidemia
History of TIA/CVA 2020.
BPH with history of TURP 2021
Assessment/plan
Symptomatic ventricular tachycardia, presenting with chest pain and shortness of breath
Documented VT in the emergency room at rate of 216
Treated with IV amiodarone 150 mg x 2 with conversion to sinus rhythm with 2-1 AV block.
Transition to oral amiodarone.
Follow-up echocardiogram with now decreased EF 20 to 25% with segmental wall motion abnormalities decreased from prior 40 to 45%.
NPO for ACID today by EP
Maintain amiodarone, beta-prema as per cardiology.
Continue aspirin.
Noted with troponin elevation likely due to nonischemic cardiac injury in the settings of rapid VT. Will monitor trend.
s/p cardiac cath-per patient no intervention required.
04/12
S/p AICD
Continue amiodarone load and taper as per cardiology recommendations
Resume Eliquis tomorrow
CAD with prior CABG plan
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
Atrial fibrillation
Continue beta-prema
Currently on amiodarone for VT.
Resume Eliquis tomorrow
Essential hypertension.
Continue metoprolol/valsartan
CODE STATUS: Full code
DVT prophylaxis: SCDs
Diet: cardiac diet
Total time spent on today's encounter was 65 minutes which included time spent in counseling the patient/family regarding diagnosis and treatment plan as listed above, goals of care, and symptom management. Case was discussed with nursing staff,
specialists, and care coordinators/case management. All labs and imaging personally reviewed by me. Remainder the time spent in detailed review of previous records, lab data, imaging, and other medical provider documentation.
Anticipated Discharge: > 48 hours
Subjective/Interval History
-
Date of Service: April 12, 2025
Patient seen and examined at bedside, denies any chest pain or shortness of breath, no abdominal pain, no nausea, no vomiting, no diarrhea or constipation.
Objective Data
-
Labs:
Laboratory Results
04/12/25
02:34
WBC 7.7
Hgb 14.1
Hct 41.6
Plt Count 173
Sodium 138
Potassium 4.5
Chloride 108 H
Carbon Dioxide 24
BUN 24 H
Creatinine 0.7
Glucose 104 H
Calcium 9.2
Vital Signs:
Vital Signs
Temp Pulse Resp BP Pulse Ox
98.1 F 78 18 139/78 98
04/12/25 09:00 04/12/25 10:00 04/12/25 09:00 04/12/25 08:59 04/12/25 09:00
I&O
04/11/25 04/12/25 04/13/25
06:59 06:59 06:59
Intake Total 378 / 378 600 / 600
Output Total 350 / 350
Balance 378 / 378 250 / 250
Physical Exam
-
General: Well Developed and No Apparent Distress
HEENT: Normocephalic, Atraumatic and Moist Mucous Membranes
Respiratory: Clear to Auscultation
Cardiac: Regular Rhythm, S1/S2 and Other (AICD surgical site is clean); Negative Murmur, Rub or Gallop
GI: Soft, Nontender, Nondistended and Normal Bowel Sounds; Negative Organomegaly
Rectal: Deferred by Provider
Musculoskeletal: No Clubbing, No Cyanosis and No Edema
Skin: Negative Rash
Neuro: Awake, No Motor Deficits and Nonfocal/Grossly Intact
Psych: Calm
Data Reviewed
-
Diagnostic Radiology: Image personally visualized and interpreted and Report Reviewed by me
CT Scan: Image personally visualized and interpreted and Report Reviewed by me
Ultrasound: Image personally visualized and interpreted and Report Reviewed by me
MRI: Image personally visualized and interpreted and Report Reviewed by me
Medical Tests (Nuc Med, Echo etc): Image personally visualized and interpreted and Report Reviewed by me
Labs: Labs Reviewed by me
Old Records: Reviewed
[2025-04-12 12:34] VITALS: BP 121/81
[2025-04-12 15:56] VITALS: BP 129/79
--- NOTE | 2025-04-12 16:24 | PTCARENOTE ---
Patient is oob ambulating in the stephens, offers no complaints, aware of need to stay hospitalized on amiodarone loading dose.
[2025-04-12] MEDS: LIPITOR 80 MG PO (17:33)
[2025-04-12 19:31] VITALS: BP 131/80
[2025-04-12 22:06] VITALS: BP 118/72
--- NOTE | 2025-04-12 23:30 | PTCARENOTE ---
Tele remains Vpaced w/ occasional PVCs. HR in the 60-70's. Patient denies any pain or SOB. Left anterior chest dressing remains intact w/ pressure dressing in place. Left arm restrictions maintained. Call sharma within reach.
[2025-04-13 03:08] VITALS: BP 135/78
[2025-04-13 03:20] VITALS: BMI 28.3
[2025-04-13] MEDS: TYLENOL 650 MG PO ×3 (03:20→22:08)
[2025-04-13 03:39] LABS: Hematocrit 45.1 % (39.0-52.0); Hemoglobin 15.2 g/dL (13.0-18.0); Mean Corp Hgb Conc. 33.7 g/dL (33.0-37.0); Mean Corpuscular Hgb 29.5 pg (27.0-31.0); Mean Corpuscular Volume 87.6 fL (80.0-94.0); Mean Platelet Volume 10.5 fL (7.4-10.4); Platelet Count 152 10^3/uL (130-400); Red Blood Cell Count 5.15 10^6/uL (4.70-6.10); Red Cell Dist. Width 13.1 % (11.5-14.5); White Blood Cell Count 10.2 10^3/uL (4.8-10.8)
[2025-04-13 04:07] LABS: Blood Urea Nitrogen 25 mg/dl (9-20); Calcium 9.5 mg/dl (8.4-10.2); Carbon Dioxide 24 mmol/L (22-30); Chloride 109 mmol/L (98-107); Estimated Creatinine Clearance 77 ml/min; Glucose 122 mg/dl (70-99); Potassium 4.5 mmol/L (3.5-5.1); Sodium 139 mmol/L (135-145); eGFR > 60.00
[2025-04-13 06:59] VITALS: BP 125/67
[2025-04-13] MEDS: LOW STRENGTH ASPIRIN 81 MG PO (08:18)
[2025-04-13] MEDS: FARXIGA 10 MG PO (08:18)
[2025-04-13] MEDS: ZETIA 10 MG PO (08:18)
[2025-04-13] MEDS: DIOVAN 20 MG PO (08:18)
[2025-04-13] MEDS: PACERONE 400 MG PO ×3 (08:20→22:03)
[2025-04-13] MEDS: TOPROL XL 12.5 MG PO ×2 (08:22→20:04)
--- NOTE | 2025-04-13 09:11 | W.PN.CARDCBS ---
Today's Communication / Plan
-
Continue amiodarone load and telemetry monitoring
Resume Eliquis
Anticipate discharge home tomorrow
Impression / Plan
-
PCP:
Dye Maker:
Impression:
Presented with chest pain, SOB
Ventricular tachycardia
2:1 AV block
Paroxysmal atrial fibrillation
s/p PFA 12/26/2024
Chronic Eliquis anticoagulation
CAD
s/p CABG x3 (NEWBY to LAD, SVG to OM, SVG to RPL) 04/18/2019
s/p mitral valve ring repair 04/18/2019
ICM
Chronic HFmrEF
Bilateral carotid artery disease w/ R carotid occlusion
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
DEEPIKA/BiPAP
DM
HLD
HTN
h/o TIA/CVA (2020)
BPH s/p TURP (06/2022)
Echo 11/18/2024: EF 40%, basal inferior and inferolateral akinesis, mild cLVH, s/p MV repair w/ peak/mean gradients 6/2 mmHg, trace TR, estimated PAP 20-25 mmHg
IRENA 12/24/2024: EF 40%, severe hypokinesis of the basal to mid inferior and inferolateral wall, MV ring repair in place and functioning well with trace MR, mild
Plan:
Admitted with chest pain and episode of sustained monomorphic VT 04/08/25 with history of high degree AV block's/second-degree AV block, EF less than 35%, left bundle branch block and known multivessel coronary disease status post CABG 2018 and
mitral valve ring repair with known ischemic cardiomyopathy. Patient had chemical conversion to sinus rhythm following amiodarone
- Patient did not require resuscitation or shock
- Peak troponin 0.54; TSH 1.7; proBNP 156: LDL 45
-2D echocardiogram 04/09/2025 with EF 20-25% with dilated left ventricle and regional wall motion abnormalities in the inferior and inferolateral gamboa. Grade 2 diastolic dysfunction. Mildly reduced RV systolic function. Status post mitral valve
repair with mean gradient 4 mmHg and mild eccentric mitral regurgitation. Aortic sclerosis without stenosis. Mild TR. Estimated pulmonary artery pressure 35 mmHg. No pericardial effusion.
- Underwent cardiac catheterization 04/08/[address] Fernandez with NEWBY to LAD widely patent. Saphenous vein graft with skip graft to circumflex/OM and RPL widely patent. [place] coronary vessels with mid 80% LAD stenosis with competitive flow from
NEWBY graft. Circumflex 100% occlusion in the midportion with patent SVG graft. RCA and its branches are free of angiographic disease.
- Underwent placement of Medtronic SATELLITE TELEVISION INSTALLER/D using LBB pacing lead with Dr. Figueroa 04/11/2025
- Telemetry with rare ventricular couplets, PVCs and 1 ventricular triplet
- Will continue amiodarone load 400 mg 3 times daily through the weekend and discharged on amiodarone taper 400 mg twice daily for 1 week followed by 200 mg twice daily for 1 week followed by 200 mg daily thereafter
- Cath site intact
- Device site with mild swelling with pressure dressing but no significant hematoma or drainage.
- Pertinent labs post procedure: Hemoglobin 14.1, platelets 173,000, BUN/creatinine 24/0.7. Sodium 138, potassium 4.5.
- Resume Eliquis 5 mg twice daily
- Continue goal-directed medical therapy for ischemic cardiomyopathy/CAD: Valsartan 20 mg daily, Farxiga 10 mg daily, metoprolol succinate 12.5 mg twice daily, aspirin 81 mg daily, atorvastatin 80 mg daily along with ezetimibe 10 mg daily.
- Post procedure wound care and activity restrictions reviewed
- Discharge plan discussed with patient and he is agreeable to stay through tomorrow.
- Discussed with hospitalist
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
and prior TIA who presented to [facility] ER for evaluation after he awoke in the middle of the night with chest pain and SOB. He reports symptoms last night were different than his prior afib/flutter symptoms and he had never felt anything like this
before. He took off his BiPAP and continued to feel chest pain, so drove him to . On arrival to ER, he was noted to be in VT on initial EKG with HR 216 bpm. He was given amiodarone and x2 and after 2nd dose converted to SR with 2:1 AV block.
He states with caodaism of SR, symptoms improved and he has been feeling well without recurrent chest pain or SOB overnight on amiodarone gtt. Remains in SR this AM. HR stable.
Progress Note - Dye Maker
Subjective
Date of Service: April 13, 2025
Seen and examined. Discussed plan with Tran over the phone. Offers no complaints and is ambulating asymptomatic around unit
Objective
Labs:
04/13/25 03:14
04/13/25 03:14
Labs
Hgb 15.2 g/dL (13.0-18.0) 04/13/25 03:14
Hct 45.1 % (39.0-52.0) 04/13/25 03:14
Plt Count 152 10^3/uL (130-400) 04/13/25 03:14
PT 11.7 Sec (11.4-14.6) 04/08/25 22:38
INR 0.83 04/08/25 22:38
APTT 26.2 Sec (23.4-35.0) 04/08/25 22:38
Sodium 139 mmol/L (135-145) 04/13/25 03:14
Potassium 4.5 mmol/L (3.5-5.1) 04/13/25 03:14
BUN 25 mg/dl (9-20) H 04/13/25 03:14
Creatinine 0.8 mg/dL (0.7-1.3) 04/13/25 03:14
Glucose 122 mg/dl (70-99) H 04/13/25 03:14
Vital Signs and I&O:
Vital Signs
Temp Pulse Resp BP Pulse Ox
97.8 F 68 20 125/67 97
04/13/25 07:00 04/13/25 07:00 04/13/25 07:00 04/13/25 08:18 04/13/25 07:00
Vital Signs
Temp Pulse Resp BP Pulse Ox
97.8 F 68 20 125/67 97
04/13/25 07:00 04/13/25 07:00 04/13/25 07:00 04/13/25 08:18 04/13/25 07:00
Intake & Output
04/11/25 04/12/25 04/13/25 04/14/25
06:59 06:59 06:59 06:59
Intake Total 378 / 378 600 / 600 1080 / 1080
Output Total 350 / 350
Balance 378 / 378 250 / 250 1080 / 1080
Physical Exam
Physical Exam
AAOx3, MAEE 5/5
RRR S1 S2 no murmurs
Clear to auscultation bilateral
soft abd, + bs
bilat groin sites without ht/bleeding, non tender
Device site left anterior chest wall with Aquacel. c/d/i
bilat extremities w/palpable distal pulses, no edema
[2025-04-13 11:17] VITALS: BP 116/61
--- NOTE | 2025-04-13 15:03 | W.PN.HOSP.TC ---
Today's Communication/Plan
-
Discharge home tomorrow
Assessment / Plan
Assessment / Plan
Impression.
Symptomatic ventricular tachycardia
� Presenting with chest pain and shortness of breath
Troponin elevation likely secondary to nonischemic cardiac injury in the settings of VT
Other conditions:
CAD.
Status post CABG x 3 04/14
status post mitral valve repair 04/14.
Ischemic cardiomyopathy baseline chronic CHF mildly reduced EF.
Paroxysmal atrial fibrillation.
� Status post PFA 12/21.
Anticoagulation with Eliquis.
Bilateral carotid artery disease status post right carotid occlusion.
PAD with history of revascularization.
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
Obstructive sleep apnea on BiPAP
Diabetes by history, not on any glucose lowering medications prior to admission per
Dyslipidemia
History of TIA/CVA 2020.
BPH with history of TURP 2021
Assessment/plan
Symptomatic ventricular tachycardia, presenting with chest pain and shortness of breath
Documented VT in the emergency room at rate of 216
Treated with IV amiodarone 150 mg x 2 with conversion to sinus rhythm with 2-1 AV block.
Transition to oral amiodarone.
Follow-up echocardiogram with now decreased EF 20 to 25% with segmental wall motion abnormalities decreased from prior 40 to 45%.
NPO for ACID today by EP
Maintain amiodarone, beta-prema as per cardiology.
Continue aspirin.
Noted with troponin elevation likely due to nonischemic cardiac injury in the settings of rapid VT. Will monitor trend.
s/p cardiac cath-per patient no intervention required.
04/12
S/p AICD
Continue amiodarone load and taper as per cardiology recommendations
Resume Eliquis tomorrow
04/13
Eliquis resumed today.
Complete amiodarone load today
Possible discharge tomorrow on amiodarone taper 400 mg twice daily for 1 week followed by 200 mg twice daily for 1 week followed by 200 mg daily thereafter
CAD with prior CABG plan
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
Atrial fibrillation
Continue beta-prema
Currently on amiodarone for VT.
Resume Eliquis tomorrow
Essential hypertension.
Continue metoprolol/valsartan
CODE STATUS: Full code
DVT prophylaxis: SCDs
Diet: cardiac diet
Total time spent on today's encounter was 65 minutes which included time spent in counseling the patient/family regarding diagnosis and treatment plan as listed above, goals of care, and symptom management. Case was discussed with nursing staff,
specialists, and care coordinators/case management. All labs and imaging personally reviewed by me. Remainder the time spent in detailed review of previous records, lab data, imaging, and other medical provider documentation.
Anticipated Discharge: Within 24 hours
Subjective/Interval History
-
Date of Service: April 13, 2025
Patient seen and examined at bedside, denies any chest pain or shortness of breath, no abdominal pain, no nausea, no vomiting, no diarrhea or constipation.
Objective Data
-
Labs:
Laboratory Results
04/13/25
03:14
WBC 10.2
Hgb 15.2
Hct 45.1
Plt Count 152
Sodium 139
Potassium 4.5
Chloride 109 H
Carbon Dioxide 24
BUN 25 H
Creatinine 0.8
Glucose 122 H
Calcium 9.5
Vital Signs:
Vital Signs
Temp Pulse Resp BP Pulse Ox
98.2 F 68 20 116/61 96
04/13/25 11:17 04/13/25 11:17 04/13/25 11:17 04/13/25 11:17 04/13/25 11:17
I&O
04/12/25 04/13/25 04/14/25
06:59 06:59 06:59
Intake Total 600 / 600 1080 / 1080
Output Total 350 / 350
Balance 250 / 250 1080 / 1080
Physical Exam
-
General: Well Developed and No Apparent Distress
HEENT: Normocephalic, Atraumatic and Moist Mucous Membranes
Respiratory: Clear to Auscultation
Cardiac: Regular Rhythm, S1/S2 and Other (AICD surgical site is clean); Negative Murmur, Rub or Gallop
GI: Soft, Nontender, Nondistended and Normal Bowel Sounds; Negative Organomegaly
Rectal: Deferred by Provider
Musculoskeletal: No Clubbing, No Cyanosis and No Edema
Skin: Negative Rash
Neuro: Awake, No Motor Deficits and Nonfocal/Grossly Intact
Psych: Calm
[2025-04-13 16:00] VITALS: BP 121/70
[2025-04-13] MEDS: LIPITOR 80 MG PO (16:04)
--- NOTE | 2025-04-13 18:15 | PTCARENOTE ---
Pt up walking in halls without problem. Pressure dressing removed from left chest ICD site, some bruising noted, no swelling. Plan to restart Eliquis tonight. Telemetry shows AV paced rhythm.
[2025-04-13 19:27] VITALS: BP 114/57
[2025-04-13] MEDS: ELIQUIS 5 MG PO (20:04)
[2025-04-13 22:05] VITALS: BP 128/72
--- NOTE | 2025-04-14 02:57 | PTCARENOTE ---
Pt AV paced on monitor. C/O back pain, PRN Tylenol given and effective. Pt ambulates independently. Safety measures in place
[2025-04-14 04:56] VITALS: BP 133/89
[2025-04-14 05:11] VITALS: BMI 28.5
[2025-04-14 05:40] LABS: Hematocrit 42.3 % (39.0-52.0); Hemoglobin 14.1 g/dL (13.0-18.0); Mean Corp Hgb Conc. 33.3 g/dL (33.0-37.0); Mean Corpuscular Hgb 29.9 pg (27.0-31.0); Mean Corpuscular Volume 89.6 fL (80.0-94.0); Platelet Count 131 10^3/uL (130-400); Red Blood Cell Count 4.72 10^6/uL (4.70-6.10); Red Cell Dist. Width 13.2 % (11.5-14.5); White Blood Cell Count 7.1 10^3/uL (4.8-10.8)
[2025-04-14 05:48] LABS: Blood Urea Nitrogen 30 mg/dl (9-20); Calcium 8.9 mg/dl (8.4-10.2); Carbon Dioxide 24 mmol/L (22-30); Chloride 110 mmol/L (98-107); Estimated Creatinine Clearance 77 ml/min; Glucose 141 mg/dl (70-99); Sodium 139 mmol/L (135-145); eGFR > 60.00
[2025-04-14 07:00] VITALS: BP 119/85
--- NOTE | 2025-04-14 08:13 | PTCARENOTE ---
Received patient this morning oob and ambulating in the halls. Scant old drainage noted on the aquacel left upper chest, patient hopeful to see cardiology soon and for discharge home today.
--- NOTE | 2025-04-14 09:04 | W.PN.CARDCBS ---
Addendum entered and electronically signed by Alea Miranda DO 04/14/25 10:49:
Patient's lisinopril switched to low-dose valsartan 20 mg daily; blood pressure trends had been low but stable. Ideally, plan to transition him to Entresto if blood pressure allows as an outpatient.
Addendum entered and electronically signed by Alea Miranda DO 04/14/25 09:24:
Clarification regarding driving restrictions: If no arrhythmia on device, no driving for 1 month
Original Note:
Today's Communication / Plan
-
Discharge home today
Impression / Plan
-
PCP:
Industrial Services Worker:Dr. Lev Pineda/ Dr. Green
Impression:
Presented with chest pain, SOB
Ventricular tachycardia
2:1 AV block
Paroxysmal atrial fibrillation
s/p PFA 12/26/2024
Chronic Eliquis anticoagulation
CAD
s/p CABG x3 (NEWBY to LAD, SVG to OM, SVG to RPL) 04/18/2019
s/p mitral valve ring repair 04/18/2019
ICM
Chronic HFmrEF
Bilateral carotid artery disease w/ R carotid occlusion
PVD, R CASSIE aneurysm, w/p R Fem endarterectomy/angioplasty w/aneurysm repair, L SFA job captain/stent x2
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
DEEPIKA/BiPAP
DM
HLD
HTN
h/o TIA/CVA (2020)
BPH s/p TURP (06/2022)
Echo 11/18/2024: EF 40%, basal inferior and inferolateral akinesis, mild cLVH, s/p MV repair w/ peak/mean gradients 6/2 mmHg, trace TR, estimated PAP 20-25 mmHg
IRENA 12/24/2024: EF 40%, severe hypokinesis of the basal to mid inferior and inferolateral wall, MV ring repair in place and functioning well with trace MR, mild
Plan:
Admitted with chest pain and episode of sustained monomorphic VT 04/08/25 with history of high degree AV block's/second-degree AV block, EF less than 35%, left bundle branch block and known multivessel coronary disease status post CABG 2018 and
mitral valve ring repair with known ischemic cardiomyopathy. Patient had chemical conversion to sinus rhythm following amiodarone
- Patient did not require resuscitation or shock
- Peak troponin 0.54; TSH 1.7; proBNP 156: LDL 45
-2D echocardiogram 04/09/2025 with EF 20-25% with dilated left ventricle and regional wall motion abnormalities in the inferior and inferolateral gamboa. Grade 2 diastolic dysfunction. Mildly reduced RV systolic function. Status post mitral valve
repair with mean gradient 4 mmHg and mild eccentric mitral regurgitation. Aortic sclerosis without stenosis. Mild TR. Estimated pulmonary artery pressure 35 mmHg. No pericardial effusion.
- Underwent cardiac catheterization 04/08/[address] Fernandez with NEWBY to LAD widely patent. Saphenous vein graft with skip graft to circumflex/OM and RPL widely patent. [place] coronary vessels with mid 80% LAD stenosis with competitive flow from
NEWBY graft. Circumflex 100% occlusion in the midportion with patent SVG graft. RCA and its branches are free of angiographic disease.
- Underwent placement of Medtronic ASSISTANT DIRECTOR OF FINANCIAL AID/D using LBB pacing lead with Dr. Figueroa 04/11/2025
- Telemetry with PVCs, and 3-4 beats NSVT
- Will continue amiodarone load- Discharged on amiodarone 400 mg twice daily for 1 week starting 04/14, followed by 200 mg twice daily for 1 week followed by 200 mg daily thereafter
- Cath site intact
- Device site c/d/i
- Pertinent labs post procedure: Hemoglobin 14.1, platelets 173,000, BUN/creatinine 30/0.8. Sodium 139, potassium 4.0.
- Resume Eliquis 5 mg twice daily 04/13/25
- Continue goal-directed medical therapy for ischemic cardiomyopathy/CAD: Valsartan 20 mg daily, Farxiga 10 mg daily, metoprolol succinate 12.5 mg twice daily, aspirin 81 mg daily, atorvastatin 80 mg daily along with ezetimibe 10 mg daily.
- Post procedure wound care and activity restrictions reviewed
-Patient aware of driving restrictions after VT event
- Discharge patient home today
- Incision check as well as cardiac follow-up arranged
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
and prior TIA who presented to [facility] ER for evaluation after he awoke in the middle of the night with chest pain and SOB. He reports symptoms last night were different than his prior afib/flutter symptoms and he had never felt anything like this
before. He took off his BiPAP and continued to feel chest pain, so drove him to . On arrival to ER, he was noted to be in VT on initial EKG with HR 216 bpm. He was given amiodarone and x2 and after 2nd dose converted to SR with 2:1 AV block.
He states with jehovah's witness of SR, symptoms improved and he has been feeling well without recurrent chest pain or SOB overnight on amiodarone gtt. Remains in SR this AM. HR stable.
Progress Note - Industrial Services Worker
Subjective
Date of Service: April 14, 2025
Patient seen and examined. Ambulating around unit without symptoms.
Objective
Labs:
04/14/25 05:02
04/14/25 05:02
Labs
Hgb 14.1 g/dL (13.0-18.0) 04/14/25 05:02
Hct 42.3 % (39.0-52.0) 04/14/25 05:02
Plt Count 131 10^3/uL (130-400) 04/14/25 05:02
PT 11.7 Sec (11.4-14.6) 04/08/25 22:38
INR 0.83 04/08/25 22:38
APTT 26.2 Sec (23.4-35.0) 04/08/25 22:38
Sodium 139 mmol/L (135-145) 04/14/25 05:02
Potassium 4.0 mmol/L (3.5-5.1) 04/14/25 05:02
BUN 30 mg/dl (9-20) H 04/14/25 05:02
Creatinine 0.8 mg/dL (0.7-1.3) 04/14/25 05:02
Glucose 141 mg/dl (70-99) H 04/14/25 05:02
Vital Signs and I&O:
Vital Signs
Temp Pulse Resp BP Pulse Ox
98 F 73 20 119/85 99
04/14/25 07:01 04/14/25 08:00 04/14/25 07:01 04/14/25 07:00 04/14/25 07:01
Vital Signs
Temp Pulse Resp BP Pulse Ox
98 F 73 20 119/85 99
04/14/25 07:01 04/14/25 08:00 04/14/25 07:01 04/14/25 07:00 04/14/25 07:01
Intake & Output
04/12/25 04/13/25 04/14/25 04/15/25
06:59 06:59 06:59 06:59
Intake Total 600 / 600 1080 / 1080 240 / 240
Output Total 350 / 350
Balance 250 / 250 1080 / 1080 240 / 240
Physical Exam
Physical Exam
AAOx3, MAEE 5/5
RRR S1 S2 no murmurs
Clear to auscultation bilateral
soft abd, + bs
bilat groin sites without ht/bleeding, non tender
Device site left anterior chest wall with Aquacel. c/d/i
bilat extremities w/palpable distal pulses, no edema
[2025-04-14] MEDS: FARXIGA 10 MG PO (09:17)
[2025-04-14] MEDS: LOW STRENGTH ASPIRIN 81 MG PO (09:17)
[2025-04-14] MEDS: DIOVAN 20 MG PO (09:17)
[2025-04-14] MEDS: PACERONE 400 MG PO (09:17)
[2025-04-14] MEDS: ELIQUIS 5 MG PO (09:17)
[2025-04-14] MEDS: TOPROL XL 12.5 MG PO (09:19)
[2025-04-14] MEDS: ZETIA 10 MG PO (09:19)
[2025-04-14] MEDS: FLUSH (NSS) 1 FLUSH IV (09:20)
[2025-04-14 10:56] VITALS: BP 123/59
--- NOTE | 2025-04-14 11:03 | W.DS.TRANS ---
DC Summary - Skin Diving Teacher
-
Discharge Instructions:
Discharge Diagnosis/Procedures 04/10 Cardiac cath, 04/11 BiV ICD implant
Diet Low Cholesterol
Activity Other activity
Driving Restrictions No driving for 1 month
Bathing Restrictions OK to Shower
Specialty Instructions Weigh Daily
Instructions:
Stand-Alone Forms: DC Instructions- Cath/EP Lab
DC Inst - Implanted Device
Changes to Home Medications: Yes
Discharge Medications:
DC Medications w/original date entered in [employer]
atorvastatin 80 mg tablet 80 mg PO QPM ##30 04/23/19
metoprolol succinate 25 mg tablet,extended release 24 hr 12.5 mg PO BID Blood pressure 07/21/22
apixaban 5 mg tablet (Eliquis) 5 mg PO BID Blood clot prevention/tx 03/09/23
ezetimibe 10 mg tablet 10 mg PO DAILY High cholesterol 03/09/23
aspirin 81 mg tablet,delayed release 81 mg PO DAILY Blood Clot Prevention/Tx 12/10/24
amiodarone 200 mg tablet 200 mg PO DAILY Arrhythmia #30 tabs 04/14/25
amiodarone 200 mg tablet 400 mg (2 x 200 mg) PO BID Arrhythmia #42 tabs 04/14/25
dapagliflozin propanediol 10 mg tablet 10 mg PO DAILY Heart Failure #30 tabs 04/14/25
valsartan 40 mg tablet 20 mg (1/2 x 40 mg) PO DAILY Heart Failure #30 tabs 04/14/25
Home Medication Changes
Amiodarone, Farxiga, valsartan initiated
Lisinopril discontinued
Pending Results: No
--- NOTE | 2025-04-14 12:38 | PTCARENOTE ---
Reviewed discharge instructions in detail, including new medications, amiodarone taper schedule and follow up appointments and he states his understanding. Patient discharged home to his friend Tran's house.
== END 2025-04-14 12:00 | disposition home or self-care (01) | DRG 277 ==
LOC: IVU 23:25
PROVIDERS: Clinical Nurse Specialist Family Health; General Practice; Internal Medicine Cardiovascular Disease; Internal Medicine Interventional Cardiology; Nurse Practitioner; Physician Assistant; ADMITTING PHYSICIAN Internal Medicine; ATTENDING PHYSICIAN Internal Medicine; EMERGENCY PHYSICIAN Student in an Organized Health Care Education/Training Program; FAMILY PHYSICIAN Student in an Organized Health Care Education/Training Program; OTHER PHYSICIAN Internal Medicine Cardiovascular Disease
PROC: B2111ZZ Fluoroscopy of Multiple Coronary Arteries using Low Osmolar Contrast (ICD-10-PCS; 2025-04-10)
PROC: B2121ZZ Fluoroscopy of Single Coronary Artery Bypass Graft using Low Osmolar Contrast (ICD-10-PCS; 2025-04-10)
PROC: B2181ZZ Fluoroscopy of Left Internal Mammary Bypass Graft using Low Osmolar Contrast (ICD-10-PCS; 2025-04-10)
PROC: 4A023N7 Measurement of Cardiac Sampling and Pressure, Left Heart, Percutaneous Approach (ICD-10-PCS; 2025-04-10)
PROC: 02H63KZ Insertion of Defibrillator Lead into Right Atrium, Percutaneous Approach (ICD-10-PCS; 2025-04-11)
PROC: 0JH609Z Insertion of Cardiac Resynchronization Defibrillator Pulse Generator into Chest Subcutaneous Tissue and Fascia, Open Approach (ICD-10-PCS; 2025-04-11)
PROC: 02H43KZ Insertion of Defibrillator Lead into Coronary Vein, Percutaneous Approach (ICD-10-PCS; 2025-04-11)
PROC: 02HK3KZ Insertion of Defibrillator Lead into Right Ventricle, Percutaneous Approach (ICD-10-PCS; 2025-04-11)
PROC: B5171ZZ Fluoroscopy of Left Subclavian Vein using Low Osmolar Contrast (ICD-10-PCS; 2025-04-11)
PROC: 3E0102A Introduction of Anti-Infective Envelope into Subcutaneous Tissue, Open Approach (ICD-10-PCS; 2025-04-11)
PROC: B5181ZZ Fluoroscopy of Superior Vena Cava using Low Osmolar Contrast (ICD-10-PCS; 2025-04-11)
DX: I47.20 Ventricular tachycardia, unspecified (principal); D68.59 Other primary thrombophilia; I50.22 Chronic systolic (congestive) heart failure; I5A Non-ischemic myocardial injury (non-traumatic); I25.10 Atherosclerotic heart disease of native coronary artery without angina pectoris; I25.5 Ischemic cardiomyopathy; I48.0 Paroxysmal atrial fibrillation; E11.51 Type 2 diabetes mellitus with diabetic peripheral angiopathy without gangrene; G47.33 Obstructive sleep apnea (adult) (pediatric); R00.1 Bradycardia, unspecified; I44.1 Atrioventricular block, second degree; E78.00 Pure hypercholesterolemia, unspecified; N40.0 Benign prostatic hyperplasia without lower urinary tract symptoms; I48.92 Unspecified atrial flutter; I11.0 Hypertensive heart disease with heart failure; I65.23 Occlusion and stenosis of bilateral carotid arteries; I71.43 Infrarenal abdominal aortic aneurysm, without rupture; I34.0 Nonrheumatic mitral (valve) insufficiency; I95.9 Hypotension, unspecified; I44.7 Left bundle-branch block, unspecified; I25.82 Chronic total occlusion of coronary artery; Z95.1 Presence of aortocoronary bypass graft; I25.2 Old myocardial infarction; Z86.73 Personal history of transient ischemic attack (TIA), and cerebral infarction without residual deficits; Z87.891 Personal history of nicotine dependence; Z95.820 Peripheral vascular angioplasty status with implants and grafts; Z79.01 Long term (current) use of anticoagulants; Z79.82 Long term (current) use of aspirin; Z82.49 Family history of ischemic heart disease and other diseases of the circulatory system
CPT/HCPCS: 33249; 71045; 80048; 80053; 80061; 83735; 83880; 84443; 84484; 85025; 85027; 85610; 85730; 93005; 93306; 93459; 96374; 99152; 99153; 99291; C1769; C1777; C1882; C1887; C1892; C1894; C1898; Q9967

== ENCOUNTER → 2025-05-12 09:01 | Outpatient (REF) | payer OTHER, SELFPAY | LOC: RAD 09:01 | PROVIDERS: ATTENDING PHYSICIAN Surgery Vascular Surgery; FAMILY PHYSICIAN Student in an Organized Health Care Education/Training Program; REFERRING PHYSICIAN Internal Medicine Cardiovascular Disease | DX: I73.9 Peripheral vascular disease, unspecified (principal); I65.29 Occlusion and stenosis of unspecified carotid artery | CPT/HCPCS: 93880; 93922; 93925 ==

== ENCOUNTER → 2025-07-31 10:20 | Outpatient (REF) | payer OTHER, SELFPAY | LOC: RCS 10:20 | PROVIDERS: ATTENDING PHYSICIAN Internal Medicine Cardiovascular Disease; FAMILY PHYSICIAN Student in an Organized Health Care Education/Training Program | DX: R00.2 Palpitations (principal) | CPT/HCPCS: 93306 ==

== ENCOUNTER → 2025-08-06 08:28 | Outpatient (REF) | payer OTHER, SELFPAY | LOC: RAD 08:28 | PROVIDERS: ATTENDING PHYSICIAN Registered Nurse; FAMILY PHYSICIAN Student in an Organized Health Care Education/Training Program | DX: I73.9 Peripheral vascular disease, unspecified (principal) | CPT/HCPCS: 93922 ==

== ENCOUNTER 2025-08-21 08:21 | Day surgery (SDC) | payer OTHER, SELFPAY ==
[2025-08-21] VITALS (21 sets, daily range): BP systolic 118–145; BP diastolic 70–112; BMI 30.6
[2025-08-21 08:53] LABS: Hematocrit 41.4 % (39.0-52.0); Hemoglobin 13.4 g/dL (13.0-18.0); Mean Corp Hgb Conc. 32.4 g/dL (33.0-37.0); Mean Corpuscular Volume 87.3 fL (80.0-94.0); Platelet Count 207 10^3/uL (130-400); Red Cell Dist. Width 14.5 % (11.5-14.5)
[2025-08-21 09:00] LABS: INR 0.82; PT 11.8 Sec (11.4-14.6)
[2025-08-21 09:01] LABS: APTT 23.9 Sec (23.4-35.0)
[2025-08-21 09:04] LABS: Blood Urea Nitrogen 21 mg/dl (9-20); Calcium 9.2 mg/dl (8.4-10.2); Carbon Dioxide 21 mmol/L (22-30); Chloride 113 mmol/L (98-107); Estimated Creatinine Clearance 81 ml/min; Glucose 133 mg/dl (70-99); Potassium 4.4 mmol/L (3.5-5.1); Sodium 140 mmol/L (135-145); eGFR > 60.00
[2025-08-21] MEDS: NSS 500 IV (09:20)
[2025-08-21 09:21] LABS: Glucose - Point of Care 112 mg/dl (70-99)
--- NOTE | 2025-08-21 09:50 | W.SUR.PREOP ---
Pre-Operative Surgical Note
-
I have examined this patient prior to the performance of the scheduled procedure.
The patient's condition is unchanged from the time of the current History and
Physical and the patient is able to undergo the scheduled procedure.
Seen and evaluated. Pertinent ultrasound/noninvasive imaging reviewed. Discussed with patient recurrent severe claudication left lower extremity. Findings suggestive of either de-joao or in-stent restenosis (based on prior ultrasound, may be
de-joao). Discussed risk/benefits/alternatives of angiography with possible endovascular invention. Patient understands all wishes to proceed.
--- NOTE | 2025-08-21 11:39 | W.SUR.POST ---
Surgical Immediate Post Op
Note
Pre Op Diagnosis: PAD
Post Op Diagnosis: PAD
Procedure Performed: Aortogram, Left lower extremity angiogram, left SFA balloon angioplasty and stent
Primary Surgeon: Juan R Neff MD
Secondary Surgeons: N/A
Anesthesia: MAC
Estimated Blood Loss: 2ml
Fluids: See anesthesia flow sheet
Drains/Shunts:N/A
Specimens/Cultures: None
Doppler/Duplex/Angio (Y/N): Y
Complications: None
Operative Findings: Successful endovascular intervention
[2025-08-21 11:41] LABS: Glucose - Point of Care 110 mg/dl (70-99)
--- NOTE | 2025-08-21 11:49 | OR.RPT ---
Operative Report
Operative Report
PROCEDURE DATE: 08/21/2025
Preoperative diagnosis:
1. Peripheral arterial disease status post left superficial femoral artery angioplasty/stenting x 2.
2. Recurrent debilitating left calf claudication.
Postoperative diagnosis: Same
Procedure:
1. Duplex assisted cannulation of right common femoral artery.
2. Aortogram and pelvic angiogram.
3. Left lower extremity arteriogram with third order vessel catheterization of left popliteal artery via right common femoral artery puncture.
4. Balloon angioplasty and stent placement left superficial femoral artery de joao stenosis in the interval segment between the 2 prior stents. 6 mm x 8 cm Cook Zilver PTX drug-eluting self-expanding SFA stent (overlapping prior existing stents
proximally and distally).
5. Right femoral angiogram.
6. Supervision and interpretation.
Surgeon: Neff
Disease Education Specialist: None
Complications: None
Anesthesia: General, LMA (started initially as sedation, but significant leg movement on prepping, and therefore transitioned to general)
Fluoroscopy:
7.2 min
40 mGy
10.45 gy.cm2
Indications for procedure:
Recurrent left calf claudication. Drop in ABIs. Prior ultrasound had demonstrated SFA stenosis in the intervening segment between the prior 2 stents. Risk/benefits/alternatives of angiography fully discussed. Patient understood and wished to
proceed.
Description of procedure:
Patient was identified, brought to the operating room. Placed on the table in the supine position. After the adequate administration of anesthesia, the patient was prepped and draped in the standard surgical fashion. A standard preoperative
timeout was undertaken and everybody was in agreement with the plan.
The right common femoral artery was accessed with a micropuncture kit under direct duplex ultrasound guidance. A 5 Kenyan sheath was then advanced over a 0.035 inch wire, and a goldberg's hook catheter was advanced into the abdominal aorta.
Aortogram and pelvic angiogram was obtained. Findings as follows:
Infrarenal aorta: Patent with no significant stenosis. Significant eccentric plaque noted. 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
Right common iliac artery: Patent stent with no in-stent restenosis.
Right external iliac artery: Patent with no significant stenosis.
Left common iliac artery: Patent with no significant stenosis, mild to moderate eccentric calcified plaque.
Left external iliac artery: Patent with no significant stenosis.
Using a floppy angled hydrophilic wire, the left common femoral artery was cannulated and the catheter was advanced. Left lower extremity arteriogram was obtained. Findings as follows:
Common femoral artery: Patent with no significant stenosis.
Profunda femoris artery: Patent with no significant stenosis.
Superficial femoral artery: Patent proximal to mid segment. Mildly small in stature (especially relative to the profunda), but no focal or high-grade stenosis. Proximal stent patent with no significant stenosis. Distal stent patent with no
significant stenosis. However the intervening segment between the 2 stents had significant luminal irregularities with mild to moderate stenosis through two thirds of that length, and then a focal severe heavy plaque stenosis in the distal segment
just proximal to the more distal of the prior stent.
Popliteal artery: Patent with no significant stenosis. Eccentric plaque noted.
Anterior tibial artery: Patent proximally with high-grade stenosis just at the origin. Distal filling slow, but patent. Somewhat small throughout its course, dorsalis pedis very small with very little outflow in the foot.
Tibial peroneal trunk: Patent with moderate to severe stenosis at the bifurcation. Not significantly changed from prior angiogram.
Peroneal artery: Patent with no significant stenosis. However distally at the ankle, very little collateralization given.
Posterior tibial artery: Patent with no significant stenosis. Dominant runoff vessel to the foot. Gives rise to large plantar branch on the foot.
At this point I selectively cannulated the superficial femoral artery and then exchanged for an up and over 6 Kenyan sheath over a Storq wire. Patient was given 6000 units of intravenous heparin. Now under roadmap assisted guidance I traversed the
area of severe stenosis in between the 2 prior stents using a flopping of hydrophilic wire and a CXI catheter. Catheter was advanced distally and angiogram confirming within the true lumen. Exchanged back for a Storq wire. Predilatation was
performed with a 4 mm angioplasty balloon. Next, I placed a 6 mm x 8 cm Zilver PTX drug-eluting self-expanding stent overlapping proximally and distally with the prior stents. This was post angioplasty with a 5 mm balloon. Completion angiogram
demonstrated excellent result with complete resolution of the stenosis and now brisk flow into the runoff. Runoff imaging demonstrated preserved flow in the runoff. At this point I was very satisfied. I withdrew the sheath to the right external
iliac artery. Right femoral angiogram demonstrated good puncture in the right common femoral artery with widely patent femoral endarterectomy site, SFA and profunda proximally. At this point the wires and catheters were withdrawn. The sheath was
withdrawn and manual pressure was applied to the puncture site. Protamine had been given reverse the heparin. Hemostasis was fully achieved. The patient tolerated the procedure well. Upon completion he had a palpable posterior tibial pulse at
the ankle. He was transferred to recovery room in stable condition.
[2025-08-21] MEDS: NSS 1000 IV (12:36)
[2025-08-21] MEDS: LOW STRENGTH ASPIRIN 81 MG PO (16:22)
== END 2025-08-21 17:30 | disposition home or self-care (01) ==
LOC: CATH 08:21
PROVIDERS: ATTENDING PHYSICIAN Surgery Vascular Surgery; OTHER PHYSICIAN Internal Medicine Cardiovascular Disease; PRIMARYCARE PHYSICIAN Student in an Organized Health Care Education/Training Program
DX: I70.212 Atherosclerosis of native arteries of extremities with intermittent claudication, left leg (principal); I48.92 Unspecified atrial flutter; I50.9 Heart failure, unspecified; I42.9 Cardiomyopathy, unspecified; Z95.810 Presence of automatic (implantable) cardiac defibrillator; I47.20 Ventricular tachycardia, unspecified; Z79.01 Long term (current) use of anticoagulants; Z79.899 Other long term (current) drug therapy; Z79.82 Long term (current) use of aspirin; Z87.891 Personal history of nicotine dependence; I11.0 Hypertensive heart disease with heart failure
CPT/HCPCS: 37226; 75625; 75710; 80048; 82962; 85027; 85610; 85730; 86850; 86900; 86901; C1725; C1769; C1874; C1894; Q9967

== ENCOUNTER → 2025-10-09 08:59 | Outpatient (REF) | payer OTHER, SELFPAY | LOC: RAD 08:59 | PROVIDERS: ATTENDING PHYSICIAN Surgery Vascular Surgery; FAMILY PHYSICIAN Student in an Organized Health Care Education/Training Program | DX: I73.9 Peripheral vascular disease, unspecified (principal) | CPT/HCPCS: 93922; 93925 ==